=== PATIENT | female | born 1935 | race Caucasian/White ===

== ENCOUNTER 2019-02-18 09:45 | Emergency (ER) | payer MEDICARE, BC ==
[2019-02-18] MEDS ORDERED: LORazepam 2 MG/ML SDV IVPUSH ONE (10:34)
[2019-02-18] MEDS ORDERED: Acetaminophen/HYDROcodone 325-5 MG Tab PO ONE (10:34)
[2019-02-18] MEDS ORDERED: Ondansetron 4 MG/2 ML SDV IVPUSH ONE (10:34)
[2019-02-18] MEDS ORDERED: oxyCODONE 5 MG Tab PO ONE (10:37)
[2019-02-18] MEDS ORDERED: Acetaminophen 500 MG Tab PO ONE (10:37)
--- NOTE | 2019-02-18 10:39 | EDM.PDOC ---
ED HPI GENERAL MEDICAL PROBLEM - General Chief Complaint: Chest Pain Stated Complaint: PAIN Time Seen by Provider: 02/18/19 10:10 Source of Information: Reports: Patient History Limitations: Reports: No Limitations - History of Present Illness INITIAL COMMENTS - FREE TEXT/NARRATIVE: 83-year-old female with history of central left-sided chest pain since 2018. Apparently on 02/09/2019 she was walking to the bathroom at night without the light on and ran into a piece of furniture striking her central and left chest. She did not complain of any pain to her at the time and asked him into bed and did not have the pain until the following day. He has had fairly continual pain in her left chest and trouble chest that is worse with palpation, movement and with deep breaths. She has had no cough or hemoptysis. She was seen on 02/11/2019 at the [facility] and had chest x-ray performed which was read as negative. She was placed on Relafen and methocarbamol for her pain. She reports that the pain has been ongoing and today seemed to be worse with movement and with breathing and then see her for evaluation. She has had no nausea or vomiting. She's had no arm, neck or jaw pain. The pain is rated by her as a 6/10 now but he goes up to a 10/10 at its worse with sharp jabbing pains when she moves certain ways, palpates the area or takes a deep breath. He has no abdominal pain. She has had normal urination. She has had no fevers or chills. There are no other associated signs or symptoms. There are no other modifying factors. It should be noted that most of the history came from the patient's as the patient is a relatively poor historian. Onset: Other (02/10/2019) Duration: Constant, Getting Worse (Subjectively to the patient today) Location: Reports: Chest Quality: Reports: Ache, Pressure, Sharp Severity: Moderate (to severe at times) Improves with: Reports: Rest Worsens with: Reports: Breathing, Other (Patient), Movement Context: Reports: Trauma (As above) Associated Symptoms: Reports: No Other Symptoms (No other symptoms besides chest pain) Treatments [employer]: Reports: Acetaminophen, Other Medication(s) (As above) MID CHEST RADIATING TO THE LEFT LOWER BREAST Pain Score (Numeric/FACES): 10 - Related Data Allergies Allergy/AdvReac Type Severity Reaction Status Date / Time bacitracin Allergy Rash Verified 02/18/19 10:03 [From Neosporin ([id number])] bacitracin zinc Allergy Rash Verified 02/18/19 10:03 [From Neosporin ([id number])] neomycin sulfate Allergy Rash Verified 02/18/19 10:03 [From Neosporin ([id number])] polymyxin B Allergy Rash Verified 02/18/19 10:03 [From Neosporin ([id number])] Home Meds: Home Meds atorvaSTATin [Lipitor] 10 mg PO QPM 04/28/14 [History] cycloSPORINE [Restasis] 1 drop EYEBOTH BID 04/28/14 [History] Calcium Carbonate/Vitamin D3 [Calcium 500 + Vit D 200 Caplet] 1 tab PO BID 05/12 [History] DULoxetine [Cymbalta] 60 mg PO BID 05/12/14 [History] Gabapentin [Neurontin] 900 mg PO TID 05/12/14 [History] Multivitamin with Minerals [Multiple Vitamin] 1 tab PO DAILY 05/12/14 [History] Acetaminophen/HYDROcodone [[place] 325-5 MG] 1 tab PO Q6H PRN #14 tab 02/18/19 [Rx ] Betamethasone/Propylene Glyc [Diprolene 0.05%] 1 applic TP BID 02/18/19 [History ] Cannabidiol (Cbd) Extract [Epidiolex] 2.5 mg PO DAILY 02/18/19 [History] Folic Acid 1 mg PO DAILY 02/18/19 [History] Memantine [Namenda] 10 mg PO ASDIRECTED 02/18/19 [History] Methocarbamol 500 mg PO QID 02/18/19 [History] Methotrexate 2.5 mg PO Q7D 02/18/19 [History] Nabumetone [Relafen] 500 mg PO BID 02/18/19 [History] Propylene Glycol/PEG 400/Pf [Systane 0.3-0.4% Eye Drops] 1 each OP 02/18/19 [ History] methylPREDNISolone [Medrol] 4 mg PO ASDIRECTED #1 dosepk 02/18/19 [Rx] Past Medical History Cardiovascular History: Reports: High Cholesterol Musculoskeletal History: Reports: Arthritis (Patient is on methotrexate), Back Pain, Chronic Other Musculoskeletal History: FOOT PAIN Psychiatric History: Reports: Anxiety, Dementia - Past Surgical History Female Surgical History: Reports: Hysterectomy Musculoskeletal Surgical History: Reports: Shoulder Surgery (Left shoulder surgery) Social & Family History - Tobacco Use Smoking Status *Q: Never Smoker - Caffeine Use Caffeine Use: Reports: Soda - Alcohol Use Alcohol Use History: Yes Alcohol Use Frequency: Rarely - Living Situation & Occupation Living situation: Reports: Occupation: Retired Social History Comment: She is here with her . ED ROS GENERAL - Review of Systems Review Of Systems: See Below Constitutional: Reports: No Symptoms HEENT: Reports: No Symptoms Respiratory: Reports: No Symptoms Cardiovascular: Reports: Chest Pain GI/Abdominal: Reports: No Symptoms : Reports: No Symptoms Musculoskeletal: Reports: No Symptoms Skin: Reports: No Symptoms Neurological: Reports: No Symptoms Psychiatric: Reports: Anxiety Hematologic/Lymphatic: Reports: No Symptoms Immunologic: Reports: No Symptoms ED EXAM, GENERAL - Physical Exam Exam: See Below Exam Limited By: No Limitations General Appearance: Alert, WD/WN, Moderate Distress (Intermittently with sharp pains chest) Eye Exam: Bilateral Eye: EOMI, Normal Inspection, PERRL Ears: Normal External Exam Ear Exam: Bilateral Ear: Auricle Normal Nose: Normal Inspection, Normal Mucosa, No Blood Throat/Mouth: Normal Inspection, Normal Oropharynx, Normal Voice, No Airway Compromise Head: Atraumatic, Normocephalic Neck: Normal Inspection, Supple, Non-Tender, Full Range of Motion Respiratory/Chest: No Respiratory Distress, Lungs Clear, Normal Breath Sounds, No Accessory Muscle Use, Other (Tender to palpation over central and left chest. No crepitus. No subcutaneous emphysema.) Cardiovascular: Normal Peripheral Pulses, Regular Rate, Rhythm, No Edema, No JVD Peripheral Pulses: 2+: Radial (L), Radial (R), Dorsalis Pedis (L), Dorsalis Pedis (R) GI/Abdominal: Normal Bowel Sounds, Soft, Non-Tender, No Distention, No Mass Back Exam: Normal Inspection Extremities: Normal Inspection, Normal Range of Motion, Non-Tender, No Pedal Edema, Normal Capillary Refill Neurological: Alert, Oriented, CN II-XII Intact, No Motor/Sensory Deficits, Other (Poor historian) Psychiatric: Anxious Skin Exam: Warm, Dry, Intact, Normal Color, No Rash EKG INTERPRETATION EKG Date: 02/18/19 Time: 09:47 Rhythm: NSR Rate (Beats/Min): 68 [place]: Normal P-Wave: Present QRS: Normal ST-T: Normal QT: Normal Comparison: NA - No Prior EKG EKG Interpretation Comments: Normal sinus rhythm with a rate of 68. There is a normal axis. There are normal intervals including a normal QTc. It is a normal EKG. Course - Vital Signs Last Recorded V/S: Last Vital Signs Temp 36.6 C 02/18/19 09:45 Pulse 66 02/18/19 09:45 Resp 23 H 02/18/19 09:45 BP 156/86 H 02/18/19 09:45 Pulse Ox 100 02/18/19 09:45 - Orders/Labs/Meds Orders: Active Orders 24 hr Category Date Time Status Ang Chest [CT] Stat Exams 02/18/19 11:43 Taken Chest 2V [CR] Stat Exams 02/18/19 10:31 Taken Sodium Chloride 0.9% [Saline Flush] Med 02/18/19 10:31 Active 10 ml FLUSH ASDIRECTED PRN Peripheral IV Insertion Adult [OM.PC] Routine Oth 02/18/19 10:31 Ordered EKG 12 Lead [EK] Routine Ther 02/18/19 10:31 Ordered Medication Orders Sodium Chloride (Saline Flush) 10 ml FLUSH ASDIRECTED PRN PRN Reason: Keep Vein Open Last Admin: 02/18/19 11:05 Dose: 10 ml Admin: 02/18/19 10:59 Dose: 10 ml Labs: Laboratory Tests 02/18/19 02/18/19 02/18/19 Range/Units 10:50 10:50 10:50 WBC 6.7 (4.5-12.0) X10-3/uL RBC 3.90 (3.23-5.20) x10(6)uL Hgb 13.5 (11.5-15.5) g/dL Hct 39.2 (30.0-51.3) % MCV 100.3 H (80-96) fL MCH 34.5 H (27.7-33.6) pg MCHC 34.4 (32.2-35.4) g/dL RDW 15.1 (11.5-15.5) % Plt Count 241 (125-369) X10(3)uL MPV 8.6 (7.4-10.4) fL Neut % (Auto) 73.3 (46-82) % Lymph % (Auto) 17.1 (13-37) % Todd % (Auto) 6.7 (4-12) % Eos % (Auto) 2 (1.0-5.0) % Baso % (Auto) 1 (0-2) % Neut # (Auto) 5.0 (1.6-8.3) # Lymph # (Auto) 1.1 (0.6-5.0) # Todd # (Auto) 0.4 (0.0-1.3) # Eos # (Auto) 0.1 (0.0-0.8) # Baso # (Auto) 0.1 (0.0-0.2) # ESR 9 (0-20) mm/hr D-Dimer, Quantitative (0.0-0.59) mg/LFEU Sodium 143 (135-145) mmol/L Potassium 3.6 (3.5-5.3) mmol/L Chloride 104 (100-110) mmol/L Carbon Dioxide 27 (21-32) mmol/L BUN 15 (7-18) mg/dL Creatinine 0.7 (0.55-1.02) mg/dL Est Cr Clr Drug Dosing 52.14 mL/min Estimated GFR (MDRD) > 60 (>60) BUN/Creatinine Ratio 21.4 H (9-20) Glucose 107 (80-116) mg/dL Calcium 9.2 (8.6-10.2) mg/dL Total Bilirubin 0.7 (0.1-1.3) mg/dL AST 20 (5-25) IU/L ALT 25 (12-36) U/L Alkaline Phosphatase 94 (56-112) IU/L Troponin I < 0.017 L (<0.017-0.056) ng/mL C-Reactive Protein < 0.2 L (0.5-0.9) mg/dL Total Protein 6.9 (6.0-8.0) g/dL Albumin 3.9 (3.2-4.6) g/dL Globulin 3.0 g/dL Albumin/Globulin Ratio 1.3 07/01/19 Range/Units 10:50 WBC (4.5-12.0) X10-3/uL RBC (3.23-5.20) x10(6)uL Hgb (11.5-15.5) g/dL Hct (30.0-51.3) % MCV (80-96) fL MCH (27.7-33.6) pg MCHC (32.2-35.4) g/dL RDW (11.5-15.5) % Plt Count (125-369) X10(3)uL MPV (7.4-10.4) fL Neut % (Auto) (46-82) % Lymph % (Auto) (13-37) % Todd % (Auto) (4-12) % Eos % (Auto) (1.0-5.0) % Baso % (Auto) (0-2) % Neut # (Auto) (1.6-8.3) # Lymph # (Auto) (0.6-5.0) # Todd # (Auto) (0.0-1.3) # Eos # (Auto) (0.0-0.8) # Baso # (Auto) (0.0-0.2) # ESR (0-20) mm/hr D-Dimer, Quantitative 0.86 H (0.0-0.59) mg/LFEU Sodium (135-145) mmol/L Potassium (3.5-5.3) mmol/L Chloride (100-110) mmol/L Carbon Dioxide (21-32) mmol/L BUN (7-18) mg/dL Creatinine (0.55-1.02) mg/dL Est Cr Clr Drug Dosing mL/min Estimated GFR (MDRD) (>60) BUN/Creatinine Ratio (9-20) Glucose (80-116) mg/dL Calcium (8.6-10.2) mg/dL Total Bilirubin (0.1-1.3) mg/dL AST (5-25) IU/L ALT (12-36) U/L Alkaline Phosphatase (56-112) IU/L Troponin I (<0.017-0.056) ng/mL C-Reactive Protein (0.5-0.9) mg/dL Total Protein (6.0-8.0) g/dL Albumin (3.2-4.6) g/dL Globulin g/dL Albumin/Globulin Ratio Meds: Medications Generic Name Dose Route Start Last Admin Trade Name Freq PRN Reason Stop Dose Admin Sodium Chloride 10 ml 02/18/19 10:31 02/18/19 11:05 Saline Flush FLUSH 10 ml ASDIRECTED PRN Administration Keep Vein Open Discontinued Medications Generic Name Dose Route Start Last Admin Trade Name Freq PRN Reason Stop Dose Admin Acetaminophen 1,000 mg 02/18/19 10:37 02/18/19 10:49 Tylenol Extra Strength PO 02/18/19 10:38 1,000 mg ONETIME ONE Administration Hydrocodone Bitart/Acetaminophen 1 tab 02/18/19 10:34 02/18/19 11:05 [place] 325-5 Mg PO 02/18/19 10:35 Not Given ONETIME ONE Sodium Chloride 500 mls @ 999 mls/hr 02/18/19 11:42 02/18/19 11:54 Normal Saline IV 02/18/19 12:12 999 mls/hr .BOLUS ONE Administration Iopamidol 75 ml 02/18/19 12:00 02/18/19 12:26 Isovue-370 (76%) IV 02/18/19 12:01 75 ml ONETIME ONE Administration Lorazepam 0.5 mg 02/18/19 10:34 02/18/19 11:01 Ativan IVPUSH 02/18/19 10:35 0.5 mg ONETIME ONE Administration Ondansetron HCl 4 mg 02/18/19 10:34 02/18/19 10:59 Zofran IVPUSH 02/18/19 10:35 4 mg ONETIME ONE Administration Oxycodone HCl 5 mg 02/18/19 10:37 02/18/19 11:22 Oxycodone PO 02/18/19 10:38 5 mg ONETIME ONE Administration - Radiology Interpretation Free Text/Narrative:: Chest x-ray PA and lateral showed no acute disease. CTA of chest showed no evidence of pulmonary embolism, aortic dissection or pneumonia. There were gallstones present. There is a 1.8 cm low attenuation lesion in the left lobe of the liver in which nonemergent ultrasound examination is recommended by the radiologist. - Re-Assessments/Exams Free Text/Narrative Re-Assessment/Exam: 02/18/19 11:35: Patient's pain is much improved. She remains vitally stable. Her chest x-ray appears normal. Her blood tests are reassuringly normal or unchanged except she does have an elevated d-dimer. I will send her for CTA of her chest to rule out PE or dissection. 02/18/19 14:04: CTA of the chest was negative for pulmonary embolism, dissection or pneumonia. Her pain appears to be chest wall pain/ costochondritis. I will give the patient hydrocodone to use for more severe pain and she should follow-up with her primary doctor. Departure - Departure Time of Disposition: 14:20 Disposition: Home, Self-Care 01 Condition: Good (Improved) Clinical Impression: Chest wall pain, Costochondritis - Discharge Information Prescriptions: Acetaminophen/HYDROcodone [[place] 325-5 MG] 1 tab PO Q6H PRN #14 tab PRN Reason: Moderate to severe pain methylPREDNISolone [Medrol] 4 mg PO ASDIRECTED #1 dosepk Instructions: Costochondritis, [id number], Chest Wall Pain, [id number] Referrals: Guzman Sanford PA [Primary Care Provider] - Forms: ED Department Discharge Additional Instructions: Your blood tests were reassuringly normal except for elevated blood clots screening test. Your chest x-ray looked normal. The CT scan of your chest showed no evidence of blood clots in your lungs, damage to your arteries or pneumonias. There was a small spot on the left lobe of your liver that you will need to follow-up with your primary doctor to have this more further evaluated. The pain in your chest appears to be coming from your chest wall and this is related to inflammation of the junction between your ribs and your breastbone. You should continue to take the Relafen. Medication as prescribed (hydrocodone 5 /325, Medrol Dosepak). I did place you on an anti-inflammatory medicine (Medrol ) to try to decrease the inflammation and help with your pain. You should have activity as tolerated. Increase your fluid intake. Follow-up with your primary doctor this week or next for persisting problems. Active the emergency department for vomiting, coughing of blood, fever, trouble breathing or any other concerning sign or symptom. - My Orders Last 24 Hours: My Active Orders 02/18/19 10:31 Chest 2V [CR] Stat Sodium Chloride 0.9% [Saline Flush] 10 ml FLUSH ASDIRECTED PRN Peripheral IV Insertion Adult [OM.PC] Routine EKG 12 Lead [EK] Routine 02/18/19 11:43 Ang Chest [CT] Stat - Assessment/Plan Last 24 Hours: My Active Orders 02/18/19 10:31 Chest 2V [CR] Stat Sodium Chloride 0.9% [Saline Flush] 10 ml FLUSH ASDIRECTED PRN Peripheral IV Insertion Adult [OM.PC] Routine EKG 12 Lead [EK] Routine 02/18/19 11:43 Ang Chest [CT] Stat
[2019-02-18] MEDS: Sodium Chloride 0.9% 10 ML Syringe FLUSH PRN ×2 (10:59→11:05)
[2019-02-18] MEDS ORDERED: Sodium Chloride 0.9% 500 ML IV ONE (11:42)
[2019-02-18] MEDS ORDERED: Iopamidol 755 Mg/ML 75 ML Bottle IV ONE (12:00)
== END 2019-02-18 14:40 | disposition home or self-care (01) ==
LOC: FB.ED 09:45
DX: M94.0 Chondrocostal junction syndrome [Tietze] (principal); E78.00 Pure hypercholesterolemia, unspecified; Z79.899 Other long term (current) drug therapy; Z88.1 Allergy status to other antibiotic agents; Z88.8 Allergy status to other drugs, medicaments and biological substances
CPT/HCPCS: 36415; 71046; 71275; 80053; 84484; 85025; 85379; 85651; 86140; 93005; 96361; 96374; 96375; 99284; A9270; J2060; J2405; J7040; Q9967

== ENCOUNTER 2019-02-22 10:03 | Emergency (ER) | payer MEDICARE, BC ==
[2019-02-22] MEDS ORDERED: Morphine 4 MG/ML Syringe IVPUSH ONE (11:10)
[2019-02-22] MEDS ORDERED: Ondansetron 4 MG/2 ML SDV IVPUSH ONE (11:10)
[2019-02-22] MEDS ORDERED: Sodium Chloride 0.9% 500 ML IV ONE (11:10)
--- NOTE | 2019-02-22 11:10 | EDM.PDOC ---
ED HPI GENERAL MEDICAL PROBLEM - General Chief Complaint: Lower Extremity Injury/Pain Stated Complaint: RT LEG PAIN Time Seen by Provider: 02/22/19 11:00 Source of Information: Reports: Patient, Family () History Limitations: Reports: No Limitations - History of Present Illness INITIAL COMMENTS - FREE TEXT/NARRATIVE: 83-year-old female who reports she was going to the bathroom this morning an approximate 7:30 AM and she slipped and fell landing on her right hip area. There was no loss of consciousness. She had no weakness or dizziness or passout spell. She did have immediate pain in her right hip and she reports that she and her were able to get her back up and back into the bed but with extreme difficulty. She has had fairly severe pain with spasms in her right hip since that time. The pain seems to go down her leg toward her knee. The pain is worse with any Movement of her leg. She has no neck pain or back pain. She has had some nausea associated with the pain but no vomiting. She has no abdominal pain. She rates her pain as a 10/10. It is sharp and spasm-like. There are no other associated signs or symptoms. There are no other modifying factors. 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: Other (see below) (Nothing) Right Hip Pain Score (Numeric/FACES): 10 - Related Data Allergies Allergy/AdvReac Type Severity Reaction Status Date / Time bacitracin Allergy Rash Verified 02/22/19 11:10 [From Neosporin ([id number])] bacitracin zinc Allergy Rash Verified 02/22/19 11:10 [From Neosporin ([id number])] morphine Allergy Vomiting Verified 02/22/19 11:19 neomycin sulfate Allergy Rash Verified 02/22/19 11:10 [From Neosporin ([id number])] polymyxin B Allergy Rash Verified 02/22/19 11:10 [From Neosporin ([id number])] Home Meds: Home Meds atorvaSTATin [Lipitor] 10 mg PO QPM 04/28/14 [History] cycloSPORINE [Restasis] 1 drop EYEBOTH BID 04/28/14 [History] Calcium Carbonate/Vitamin D3 [Calcium 500 + Vit D 200 Caplet] 1 tab PO BID 05/12 [History] DULoxetine [Cymbalta] 60 mg PO BID 05/12/14 [History] Gabapentin [Neurontin] 900 mg PO TID 05/12/14 [History] Multivitamin with Minerals [Multiple Vitamin] 1 tab PO DAILY 05/12/14 [History] Acetaminophen/HYDROcodone [[place] 325-5 MG] 1 tab PO Q6H PRN #14 tab 02/18/19 [Rx ] Betamethasone/Propylene Glyc [Diprolene 0.05%] 1 applic TP BID 02/18/19 [History ] Cannabidiol (Cbd) Extract [Epidiolex] 2.5 mg PO DAILY 02/18/19 [History] Folic Acid 1 mg PO DAILY 02/18/19 [History] Memantine [Namenda] 10 mg PO ASDIRECTED 02/18/19 [History] Methocarbamol 500 mg PO QID 02/18/19 [History] Methotrexate 2.5 mg PO Q7D 02/18/19 [History] Nabumetone [Relafen] 500 mg PO BID 02/18/19 [History] Propylene Glycol/PEG 400/Pf [Systane 0.3-0.4% Eye Drops] 1 each OP 02/18/19 [ History] methylPREDNISolone [Medrol] 4 mg PO ASDIRECTED #1 dosepk 02/18/19 [Rx] Past Medical History Cardiovascular History: Reports: High Cholesterol Musculoskeletal History: Reports: Arthritis (Patient is on methotrexate), Back Pain, Chronic Other Musculoskeletal History: FOOT PAIN 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, Anxiety, Dementia - Past Surgical History Female Surgical History: Reports: Hysterectomy Musculoskeletal Surgical History: Reports: Shoulder Surgery (Left shoulder surgery) Social & Family History - Tobacco Use Smoking Status *Q: Never Smoker - Caffeine Use Caffeine Use: Reports: Coffee - Alcohol Use Alcohol Use History: No - Recreational Drug Use Recreational Drug Use: No - Living Situation & Occupation Living situation: Reports: Occupation: Retired Review of Systems - Review of Systems Review Of Systems: See Below Constitutional: Reports: No Symptoms Eyes: Reports: No Symptoms Ears: Reports: No Symptoms Nose: Reports: No Symptoms Mouth/Throat: Reports: No Symptoms Respiratory: Reports: No Symptoms Cardiovascular: Reports: No Symptoms GI/Abdominal: Reports: Nausea Genitourinary: Reports: No Symptoms Musculoskeletal: Reports: Joint Pain (Right hip pain) Skin: Reports: No Symptoms (No open wounds) Neurological: Reports: No Symptoms Psychiatric: Reports: Anxiety ED EXAM, GENERAL - Physical Exam Exam: See Below Exam Limited By: No Limitations General Appearance: Alert, Moderate Distress (to severe) Eye Exam: Bilateral Eye: EOMI, Normal Inspection, PERRL Ears: Normal External Exam Ear Exam: Bilateral Ear: Auricle Normal Nose: Normal Inspection, Normal Mucosa, No Blood Throat/Mouth: Normal Voice, No Airway Compromise, Other (Dry membranes) Head: Atraumatic, Normocephalic Neck: Normal Inspection, Supple, Non-Tender, Full Range of Motion Respiratory/Chest: No Respiratory Distress, Lungs Clear, Normal Breath Sounds, No Accessory Muscle Use, Other (Tender in her central and left chest as was on ) Cardiovascular: Normal Peripheral Pulses, Regular Rate, Rhythm, No JVD Peripheral Pulses: 2+: Radial (L), Radial (R), Dorsalis Pedis (L), Dorsalis Pedis (R) GI/Abdominal: Normal Bowel Sounds, Soft, Non-Tender, No Distention Back Exam: Normal Inspection Extremities: No Pedal Edema, Normal Capillary Refill, Other (Exquisite pain with palpation over her right hip. No crepitus.) Neurological: Alert, CN II-XII Intact, No Motor/Sensory Deficits, Other (Slight disorientation secondary to being consumed with pain) Psychiatric: Anxious Skin Exam: Warm, Dry, Intact, Normal Color, No Rash EKG INTERPRETATION EKG Date: 02/22/19 Time: 14:30 Rhythm: NSR Rate (Beats/Min): 91 [place]: Normal QRS: Normal ST-T: Other (Lateral T-wave flattening that was not present on EKG on 02/18/2019.) QT: Prolonged (Which is also new from EKG performed on 02/18/2019.) Comparison: Change From Previous EKG (Changes as above from EKG performed on 02/18.) Course - Vital Signs Last Recorded V/S: Last Vital Signs Temp Pulse 86 02/22/19 14:24 Resp 18 07/05/19 14:24 BP 159/85 H 02/22/19 14:24 Pulse Ox 97 02/22/19 14:24 - Orders/Labs/Meds Orders: Active Orders 24 hr Category Date Time Status EKG Documentation Completion [RC] ASDIRECTED Care 02/22/19 11:12 Active Insert Urinary Catheter [OM.PC] Q24H Care 02/22/19 11:15 Ordered Urinary Catheter Assessment [RC] QSHIFT Care 02/22/19 11:12 Active Cervical Spine wo Cont [CT] Stat Exams 02/22/19 14:27 Taken Head wo Cont [CT] Stat Exams 02/22/19 14:25 Taken Hip Min 2V or 3V w Pelvis Rt [CR] Stat Exams 02/22/19 11:14 Taken CULTURE URINE [RM] Stat Lab 02/22/19 14:55 Received Sodium Chloride 0.9% [Normal Saline] 1,000 ml Med 02/22/19 11:15 Active IV ASDIRECTED EKG 12 Lead [EK] Routine Ther 02/22/19 11:11 Ordered Medication Orders Sodium Chloride (Normal Saline) 1,000 mls @ 125 mls/hr IV ASDIRECTED GAVIN Last Admin: 02/22/19 12:15 Dose: 125 mls/hr Labs: Laboratory Tests 02/22/19 02/22/19 02/22/19 Range/Units 11:28 11:28 11:28 WBC 19.3 H (4.5-12.0) X10-3/uL RBC 4.10 (3.23-5.20) x10(6)uL Hgb 14.2 (11.5-15.5) g/dL Hct 41.4 (30.0-51.3) % MCV 100.8 H (80-96) fL MCH 34.5 H (27.7-33.6) pg MCHC 34.2 (32.2-35.4) g/dL RDW 15.7 H (11.5-15.5) % Plt Count 294 (125-369) X10(3)uL MPV 8.4 (7.4-10.4) fL Add Manual Diff Yes Neutrophils % (Manual) 81 (46-82) % Band Neutrophils % 5 (0-6) % Lymphocytes % (Manual) 9 L (13-37) % Monocytes % (Manual) 5 (4-12) % Sodium 147 H (135-145) mmol/L Potassium 3.2 L (3.5-5.3) mmol/L Chloride 106 (100-110) mmol/L Carbon Dioxide 26 (21-32) mmol/L BUN 16 (7-18) mg/dL Creatinine 0.6 (0.55-1.02) mg/dL Est Cr Clr Drug Dosing TNP Estimated GFR (MDRD) > 60 (>60) BUN/Creatinine Ratio 26.7 H (9-20) Glucose 86 (80-116) mg/dL Calcium 9.0 (8.6-10.2) mg/dL Total Bilirubin 0.6 (0.1-1.3) mg/dL AST 22 (5-25) IU/L ALT 32 D (12-36) U/L Alkaline Phosphatase 123 H (56-112) IU/L Troponin I < 0.017 L (<0.017-0.056) ng/mL Total Protein 7.4 (6.0-8.0) g/dL Albumin 4.3 (3.2-4.6) g/dL Globulin 3.1 g/dL Albumin/Globulin Ratio 1.4 Urine Color (YELLOW) Urine Appearance (CLEAR) Urine pH (5.0-6.5) Ur Specific [place] (1.010-1.025) Urine Protein (NEGATIVE) mg/dL Urine Glucose (UA) (NORMAL) mg/dL Urine Ketones (NEGATIVE) mg/dL Urine Occult Blood (NEGATIVE) Urine Nitrite (NEGATIVE) Urine Bilirubin (NEGATIVE) Urine Urobilinogen (NEGATIVE) mg/dL Ur Leukocyte Esterase (NEGATIVE) Urine RBC (0-5) Urine WBC (0-5) Ur Squamous Epith Cells (NS,R,O) Urine Bacteria (NS) 02/22/19 Range/Units 14:53 WBC (4.5-12.0) X10-3/uL RBC (3.23-5.20) x10(6)uL Hgb (11.5-15.5) g/dL Hct (30.0-51.3) % MCV (80-96) fL MCH (27.7-33.6) pg MCHC (32.2-35.4) g/dL RDW (11.5-15.5) % Plt Count (125-369) X10(3)uL MPV (7.4-10.4) fL Add Manual Diff Neutrophils % (Manual) (46-82) % Band Neutrophils % (0-6) % Lymphocytes % (Manual) (13-37) % Monocytes % (Manual) (4-12) % Sodium (135-145) mmol/L Potassium (3.5-5.3) mmol/L Chloride (100-110) mmol/L Carbon Dioxide (21-32) mmol/L BUN (7-18) mg/dL Creatinine (0.55-1.02) mg/dL Est Cr Clr Drug Dosing Estimated GFR (MDRD) (>60) BUN/Creatinine Ratio (9-20) Glucose (80-116) mg/dL Calcium (8.6-10.2) mg/dL Total Bilirubin (0.1-1.3) mg/dL AST (5-25) IU/L ALT (12-36) U/L Alkaline Phosphatase (56-112) IU/L Troponin I (<0.017-0.056) ng/mL Total Protein (6.0-8.0) g/dL Albumin (3.2-4.6) g/dL Globulin g/dL Albumin/Globulin Ratio Urine Color Yellow (YELLOW) Urine Appearance Slightly cloudy (CLEAR) Urine pH 8.0 H (5.0-6.5) Ur Specific [place] 1.010 (1.010-1.025) Urine Protein Negative (NEGATIVE) mg/dL Urine Glucose (UA) Normal (NORMAL) mg/dL Urine Ketones Negative (NEGATIVE) mg/dL Urine Occult Blood Moderate H (NEGATIVE) Urine Nitrite Positive H (NEGATIVE) Urine Bilirubin Negative (NEGATIVE) Urine Urobilinogen Normal (NEGATIVE) mg/dL Ur Leukocyte Esterase Negative (NEGATIVE) Urine RBC 5-10 H (0-5) Urine WBC 5-10 H (0-5) Ur Squamous Epith Cells Rare (NS,R,O) Urine Bacteria Many H (NS) Meds: Medications Generic Name Dose Route Start Last Admin Trade Name Freq PRN Reason Stop Dose Admin Sodium Chloride 1,000 mls @ 125 mls/hr 02/22/19 11:15 02/22/19 12:15 Normal Saline IV 125 mls/hr ASDIRECTED GAVIN Administration Discontinued Medications Generic Name Dose Route Start Last Admin Trade Name Beni PRN Reason Stop Dose Admin Hydromorphone HCl 0.5 mg 02/22/19 11:41 02/22/19 11:47 Dilaudid IVPUSH 02/22/19 11:42 0.5 mg ONETIME ONE Administration Hydromorphone HCl 0.5 mg 02/22/19 12:32 02/22/19 12:52 Dilaudid IVPUSH 02/22/19 12:33 0.5 mg ONETIME ONE Administration Sodium Chloride 500 mls @ 999 mls/hr 02/22/19 11:10 02/22/19 11:15 Normal Saline IV 02/22/19 11:40 999 mls/hr .BOLUS ONE Administration Morphine Sulfate 4 mg 02/22/19 11:10 02/22/19 13:02 Morphine IVPUSH 02/22/19 11:11 Not Given ONETIME ONE Ondansetron HCl 4 mg 02/22/19 11:10 02/22/19 11:22 Zofran IVPUSH 02/22/19 11:11 4 mg ONETIME ONE Administration - Radiology Interpretation Free Text/Narrative:: X-ray of right hip and pelvis shows a slightly displaced right subcapital hip fracture. - Re-Assessments/Exams Free Text/Narrative Re-Assessment/Exam: 02/22/19 12:30: I discussed patient's case with Dr. Randolph. Dr. Randolph is not cost control supervisor and is not available at this time. Patient has been given Dilaudid for pain with good results. We will continue to monitor closely and address her pain additional doses of Dilaudid as needed. 02/22/19 12:50: I discussed the x-ray findings with the patient and her . The patient will need admission and orthopedic services which are not available at [facility] at this time. The patient is followed through the [facility] by Dr. Alexandre and the would want me to discuss his 's case with the doctors at [facility]. 02/22/19 13:20: I discussed patient's case with Dr. Salazar, emergency department physician at [facility], and he will accept the patient in transfer. I discussed this with the patient's and he is in agreement with the plans for transfer. 02/22/19 14:20: Now, the patient is exhibiting some ecchymosis along her right infraorbital area. She is quite disoriented now after the Dilaudid and I will send her for a CT of her head and cervical spine to rule out any injury to these places after the fall. Report has been given by the nurse to the accepting nurse at [facility] and we will do these CTs prior to the patient's transport. 02/22/19 15:41: CT scan of the patient's head and cervical spine show no acute abnormalities per the radiologist. Departure - Departure Time of Disposition: 14:45 Disposition: DC/Tfer to [facility] 02 Condition: Fair Clinical Impression: Subcapital fracture of right hip Qualifiers: Encounter type: initial encounter Fracture type: closed Qualified Code(s): S72.011A - Unspecified intracapsular fracture of right femur, initial encounter for closed fracture Head contusion Qualifiers: Encounter type: initial encounter Contusion of head detail: other part of head Qualified Code(s): S00.83XA - Contusion of other part of head, initial encounter Fall from standing Qualifiers: Encounter type: initial encounter Qualified Code(s): W19.XXXA - Unspecified fall, initial encounter - Discharge Information Referrals: Guzman Sanford PA [Primary Care Provider] - Forms: ED Department Discharge - My Orders Last 24 Hours: My Active Orders 02/22/19 11:11 EKG 12 Lead [EK] Routine 02/22/19 11:12 EKG Documentation Completion [RC] ASDIRECTED Urinary Catheter Assessment [RC] QSHIFT 02/22/19 11:14 Hip Min 2V or 3V w Pelvis Rt [CR] Stat 02/22/19 11:15 Insert Urinary Catheter [OM.PC] Q24H Sodium Chloride 0.9% [Normal Saline] 1,000 ml IV ASDIRECTED 02/22/19 14:25 Head wo Cont [CT] Stat 02/22/19 14:27 Cervical Spine wo Cont [CT] Stat 02/22/19 14:55 CULTURE URINE [RM] Stat - Assessment/Plan Last 24 Hours: My Active Orders 02/22/19 11:11 EKG 12 Lead [EK] Routine 02/22/19 11:12 EKG Documentation Completion [RC] ASDIRECTED Urinary Catheter Assessment [RC] QSHIFT 02/22/19 11:14 Hip Min 2V or 3V w Pelvis Rt [CR] Stat 02/22/19 11:15 Insert Urinary Catheter [OM.PC] Q24H Sodium Chloride 0.9% [Normal Saline] 1,000 ml IV ASDIRECTED 02/22/19 14:25 Head wo Cont [CT] Stat 02/22/19 14:27 Cervical Spine wo Cont [CT] Stat 02/22/19 14:55 CULTURE URINE [RM] Stat
[2019-02-22] MEDS: Sodium Chloride 0.9% 1,000 ML IV SCH ×2 (11:15→12:15)
[2019-02-22] MEDS ORDERED: HYDROmorphone 2 MG/ML SDV IVPUSH ONE ×2 (11:41→12:32)
== END 2019-02-22 15:52 ==
LOC: FB.ED 10:03
DX: S72.011A Unspecified intracapsular fracture of right femur, initial encounter for closed fracture (principal); S00.83XA Contusion of other part of head, initial encounter; Z88.1 Allergy status to other antibiotic agents; Z88.5 Allergy status to narcotic agent; Z79.899 Other long term (current) drug therapy; F03.90 Unspecified dementia, unspecified severity, without behavioral disturbance, psychotic disturbance, mood disturbance, and anxiety; F41.9 Anxiety disorder, unspecified; Z90.710 Acquired absence of both cervix and uterus; W01.0XXA Fall on same level from slipping, tripping and stumbling without subsequent striking against object, initial encounter
CPT/HCPCS: 36415; 51702; 70450; 72125; 73502; 80053; 81001; 84484; 85025; 87086; 87088; 87186; 93005; 93010; 96361; 96374; 96375; 96376; 99284; 99285; J1170; J2405; J7030; J7040

== ENCOUNTER 2019-02-27 11:30 | Inpatient (IN) | payer MEDICARE, BC ==
[2019-02-27] MEDS ORDERED: Non-Formulary Medication 1 Each (Epinephrine [Epipen] 0.3 MG) IM PRN (14:37)
[2019-02-27] MEDS ORDERED: Betamethasone Dipropionate 0.05% Crm 15 GM Tube TOP PRN ×2 (15:45)
[2019-02-27] MEDS: Gabapentin 300 MG Cap PO SCH ×2 (15:51→20:29)
--- NOTE | 2019-02-27 18:07 | PCM.HP ---
H&P History of Present Illness - General Date of Service: 02/27/19 Admit Problem/Dx: Admission Diagnosis/Problem Admission Diagnosis/Problem Postoperative care Source of Information: Patient, EMS History Limitations: Reports: No Limitations - History of Present Illness Initial Comments - Free Text/Narative: This is a 83-year-old female patient that slipped and fell the bathroom and broke her right hip. She went to [facility] in [place] and had a hip pinning. She was transferred here for rehabilitation. She says she needs something for sleep other that she is doing well. Pain is controlled. She denies shortness of breath , chest pain, leg swelling, fevers or chills. - Related Data Allergies/Adverse Reactions: Allergies Allergy/AdvReac Type Severity Reaction Status Date / Time bacitracin Allergy Rash Verified 02/22/19 11:10 [From Neosporin ([id number])] bacitracin zinc Allergy Rash Verified 02/22/19 11:10 [From Neosporin ([id number])] morphine Allergy Vomiting Verified 02/22/19 11:19 neomycin sulfate Allergy Rash Verified 02/22/19 11:10 [From Neosporin ([id number])] polymyxin B Allergy Rash Verified 02/22/19 11:10 [From Neosporin ([id number])] Home Medications: Home Meds atorvaSTATin [Lipitor] 10 mg PO DAILY 04/28/14 [History] cycloSPORINE [Restasis] 1 drop EYEBOTH BID 04/28/14 [History] Calcium Carbonate/Vitamin D3 [Calcium 500 + Vit D 200 Caplet] 1 tab PO BID 05/12 [History] DULoxetine [Cymbalta] 60 mg PO BID 05/12/14 [History] Folic Acid 1 mg PO DAILY 02/18/19 [History] Memantine [Namenda] 10 mg PO BID 02/18/19 [History] Methotrexate 15 mg PO TH@0800 02/18/19 [History] Propylene Glycol/PEG 400/Pf [Systane 0.3-0.4% Eye Drops] 1 each EYEBOTH BID 09/08 [History] Apixaban [Eliquis] 2.5 mg PO BID 02/27/19 [History] Betamethasone/Propylene Glyc [Betamethasone Dp Aug 0.05% Oin] 1 applic TOP ASDIRECTED PRN 02/27/19 [History] Cholecalciferol (Vitamin D3) [Vitamin D3] 1,000 unit PO DAILY 02/27/19 [History] EPINEPHrine [Epipen] 0.3 mg IM ASDIRECTED PRN 02/27/19 [History] Gabapentin [Neurontin] 900 mg PO TID 02/27/19 [History] Lutein 10 mg PO DAILY 02/27/19 [History] Multivitamin [Daily Lamont] 1 tab PO DAILY 02/27/19 [History] Naltrexone Oral Solution 4.5 ml PO DAILY 02/27/19 [History] traMADol [Ultram] 50 mg PO Q6H PRN 02/27/19 [History] Past Medical History HEENT History: Reports: Cataract Cardiovascular History: Reports: High Cholesterol 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: Musculoskeletal History: Reports: Arthritis, Back Pain, Chronic Other Musculoskeletal History: FOOT PAIN 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 - Alcohol Use Number of Drinks Per Day: 2 Date of Last Drink: 02/13/19 - Recreational Drug Use Recreational Drug Use: No - Living Situation & Occupation Living situation: Reports: Occupation: Retired H&P Review of Systems - Review of Systems: Review Of Systems: See Below General: Reports: No Symptoms HEENT: Reports: No Symptoms Pulmonary: Reports: No Symptoms Cardiovascular: Reports: No Symptoms Gastrointestinal: Reports: No Symptoms, Mucous in Stool Musculoskeletal: Reports: Joint Pain Skin: Reports: No Symptoms Psychiatric: Reports: No Symptoms Neurological: Reports: No Symptoms Hematologic/Lymphatic: Reports: No Symptoms Immunologic: Reports: No Symptoms Exam - Exam Exam: See Below - Vital Signs Vital Signs: Last Vital Signs Temp Pulse Resp BP Pulse Ox 94 L 02/27/19 15:59 Weight: 154 lb 4 oz - Exam General: Alert, Oriented, Cooperative HEENT: Hearing Intact, Mucosa Moist & [place], TMs Clear Neck: Supple, Trachea Midline Lungs: Clear to Auscultation, Normal Respiratory Effort. No: Crackles, Rales, Rhonchi Cardiovascular: Regular Rate, Regular Rhythm, Systolic Murmur GI/Abdominal Exam: Normal Bowel Sounds, Soft, Non-Tender, No Organomegaly, No Distention, No Abnormal Bruit Extremities: Normal Inspection, No Pedal Edema Skin: Warm, Intact Neurological: Normal Speech, Normal Tone Neuro Extensive - Mental Status: Alert, Oriented x3, Normal Mood/Affect, Normal Cognition Psychiatric: Alert, Normal Affect, Normal Mood - Problem List (1) Systolic murmur SNOMED Code(s): 44723069 ICD Code: R01.1 - CARDIAC MURMUR, UNSPECIFIED Status: Acute Current Visit : Yes (2) Subcapital fracture of right hip SNOMED Code(s): 146741660 ICD Code: S72.011A - UNSP INTRACAPSULAR FRACTURE OF RIGHT FEMUR, INIT FOR CLOS FX Status: Acute Current Visit: No Problem List Initiated/Reviewed/Updated: Yes Orders Last 24hrs: Active Orders 24 hr Category Date Time Status Patient Status [ADT] Routine ADT 02/27/19 14:36 Active Height and Weight [RC] WEEKLY Care 02/27/19 14:36 Active Oxygen Therapy [RC] PRN Care 02/27/19 14:36 Active Up With Assistance [RC] ASDIRECTED Care 02/27/19 14:35 Active VTE/DVT Education [RC] Per Unit Routine Care 02/27/19 14:36 Active Vital Signs [RC] PER UNIT ROUTINE Care 02/27/19 14:36 Active OT Evaluation and Treatment [CONS] Routine Cons 02/27/19 14:35 Active PT Evaluation and Treatment [CONS] Routine Cons 02/27/19 14:35 Active Regular Diet [DIET] Diet 02/27/19 Dinner Active Apixaban [Eliquis] Med 02/27/19 21:00 Active 2.5 mg PO BID Betamethasone Dipropionate [Diprolene AF 0.05% Crm] Med 02/27/19 15:45 Active 0 gm TOP ASDIRECTED PRN Calcium Carbonate [Oyster Shell Calcium] Med 02/27/19 21:00 Active 500 mg PO BID Cholecalciferol (Vitamin D3) [Vitamin D3] Med 02/28/19 09:00 Active 25 mcg PO DAILY DULoxetine [Cymbalta] Med 02/27/19 21:00 Active 60 mg PO BID EPINEPHrine [Epipen] Med 02/27/19 14:37 Hold 0.3 mg IM ASDIRECTED PRN Folic Acid Med 02/28/19 09:00 Active 1 mg PO DAILY Gabapentin [Neurontin] Med 02/27/19 15:00 Active 900 mg PO TID Lutein Med 02/28/19 09:00 Active 10 mg PO DAILY Memantine [Namenda] Med 02/27/19 21:00 Active 10 mg PO BID Methotrexate Med 02/28/19 08:00 Active 15 mg PO TH@0800 Multivitamins [Tab-A-Lamont] Med 02/28/19 09:00 Active 1 tab PO DAILY Naltrexone Oral Solution Med 02/28/19 09:00 Pending 4.5 ml PO DAILY PEG 400/Propylene Glycol [Systane Lubricant] Med 02/27/19 21:00 Active 0 ml EYEBOTH BID atorvaSTATin [Lipitor] Med 02/28/19 09:00 Active 10 mg PO DAILY cycloSPORINE [Restasis] Med 02/27/19 21:00 Active 0 each EYEBOTH BID traMADol [Ultram] Med 02/27/19 14:37 Active 50 mg PO Q6H PRN Resuscitation Status Routine Resus Stat 02/27/19 14:35 Ordered Medication Orders Apixaban (Eliquis) 2.5 mg PO BID [facility] Atorvastatin Calcium (Lipitor) 10 mg PO DAILY [facility] Betamethasone Dipropionate (Diprolene Af 0.05% Crm) 0 gm TOP ASDIRECTED PRN PRN Reason: EZCEMA Calcium Carbonate/Glycine ([place]yster Shell Calcium) 500 mg PO BID [facility] Cholecalciferol (Vitamin D3) 25 mcg PO DAILY [facility] Cyclosporine (Restasis) 0 each EYEBOTH BID [facility] Duloxetine HCl (Cymbalta) 60 mg PO BID [facility] Folic Acid (Folic Acid) 1 mg PO DAILY [facility] Gabapentin (Neurontin) 900 mg PO TID [facility] Last Admin: 02/27/19 15:51 Dose: 900 mg Lutein (Lutein) 10 mg PO DAILY [facility] Memantine (Namenda) 10 mg PO BID [facility] Methotrexate (Methotrexate) 15 mg PO TH@0800 [facility] Multivitamins/Minerals/Vitamin C (Tab-A-Lamont) 1 tab PO DAILY GAVIN Non-Formulary Medication (Epinephrine [Epipen]) 0.3 mg IM ASDIRECTED PRN PRN Reason: ALLERGIC REACTION Non-Formulary Medication (Naltrexone Oral Solution) 4.5 ml PO DAILY GAVIN Propylene Glycol (Systane Lubricant) 0 ml EYEBOTH BID GAVIN Tramadol HCl (Ultram) 50 mg PO Q6H PRN PRN Reason: Pain Assessment/Plan Comment:: 1. Admit to swing bed. 2. Continue the same medication she came down from from [facility] 3. Regular diet 4. PT/OT 5. Try some Remeron for insomnia. Her is going to tell us what can a sleeping agent she uses when he comes in. He is a retired pharmacist. 6. Nonweightbearing right hip.
[2019-02-27] MEDS: DULoxetine 60 MG Cap PO SCH (20:27)
[2019-02-27] MEDS: Memantine 10 MG Tab PO SCH (20:28)
[2019-02-27] MEDS: Apixaban 5 MG Tab PO SCH (20:28)
[2019-02-27] MEDS: Calcium Carbonate 500 MG Tablet PO SCH (20:28)
[2019-02-27] MEDS: PEG 400/Propylene Glycol Ophth Soln 15 ML Bottle EYEBOTH SCH (20:31)
[2019-02-27] MEDS: cycloSPORINE Ophth Drops U/D Box of 30 EYEBOTH SCH (20:32)
[2019-02-27] MEDS: traMADol 50 MG Tab PO PRN (20:44)
[2019-02-27] MEDS ORDERED: Mirtazapine 15 MG Tab PO SCH (21:00)
[2019-02-28] MEDS: traMADol 50 MG Tab PO PRN ×2 (07:09→14:38)
[2019-02-28] MEDS ORDERED: NALTREXONE PO SCH (09:00)
[2019-02-28] MEDS: Methotrexate 2.5 MG Tab PO SCH (09:37)
[2019-02-28] MEDS: DULoxetine 60 MG Cap PO SCH ×2 (09:38→21:09)
[2019-02-28] MEDS: Apixaban 5 MG Tab PO SCH ×2 (09:38→21:09)
[2019-02-28] MEDS: atorvaSTATin 10 MG Tab PO SCH (09:38)
[2019-02-28] MEDS: Folic Acid 1 MG Tab PO SCH (09:38)
[2019-02-28] MEDS: Multivitamin Tab PO SCH (09:39)
[2019-02-28] MEDS: Memantine 10 MG Tab PO SCH ×2 (09:39→21:09)
[2019-02-28] MEDS: cycloSPORINE Ophth Drops U/D Box of 30 EYEBOTH SCH ×2 (09:39→21:08)
[2019-02-28] MEDS: PEG 400/Propylene Glycol Ophth Soln 15 ML Bottle EYEBOTH SCH ×2 (09:39→21:08)
[2019-02-28] MEDS: Calcium Carbonate 500 MG Tablet PO SCH ×2 (09:39→21:09)
[2019-02-28] MEDS: Cholecalciferol (Vitamin D3) 25 MCG Tab PO SCH (09:40)
[2019-02-28] MEDS: Gabapentin 300 MG Cap PO SCH ×3 (09:47→21:09)
[2019-02-28] MEDS ORDERED: Zolpidem 10 MG Tab PO SCH (21:00)
[2019-03-01] MEDS: DULoxetine 60 MG Cap PO SCH ×2 (09:24→20:02)
[2019-03-01] MEDS: atorvaSTATin 10 MG Tab PO SCH (09:25)
[2019-03-01] MEDS: Apixaban 5 MG Tab PO SCH ×2 (09:25→20:02)
[2019-03-01] MEDS: Folic Acid 1 MG Tab PO SCH (09:25)
[2019-03-01] MEDS: Memantine 10 MG Tab PO SCH ×2 (09:26→20:03)
[2019-03-01] MEDS: Calcium Carbonate 500 MG Tablet PO SCH ×2 (09:26→20:04)
[2019-03-01] MEDS: cycloSPORINE Ophth Drops U/D Box of 30 EYEBOTH SCH ×2 (09:26→20:04)
[2019-03-01] MEDS: PEG 400/Propylene Glycol Ophth Soln 15 ML Bottle EYEBOTH SCH ×2 (09:26→20:05)
[2019-03-01] MEDS: Cholecalciferol (Vitamin D3) 25 MCG Tab PO SCH (09:27)
[2019-03-01] MEDS: traMADol 50 MG Tab PO PRN ×2 (09:27→20:13)
[2019-03-01] MEDS: Multivitamin Tab PO SCH (09:27)
[2019-03-01] MEDS: Gabapentin 300 MG Cap PO SCH ×3 (09:46→20:14)
[2019-03-02] MEDS: traMADol 50 MG Tab PO PRN ×3 (04:53→21:28)
[2019-03-02] MEDS: Apixaban 5 MG Tab PO SCH ×2 (08:23→21:11)
[2019-03-02] MEDS: DULoxetine 60 MG Cap PO SCH ×2 (08:23→21:11)
[2019-03-02] MEDS: Memantine 10 MG Tab PO SCH ×2 (08:23→21:12)
[2019-03-02] MEDS: Calcium Carbonate 500 MG Tablet PO SCH ×2 (08:23→21:13)
[2019-03-02] MEDS: atorvaSTATin 10 MG Tab PO SCH (08:23)
[2019-03-02] MEDS: Folic Acid 1 MG Tab PO SCH (08:23)
[2019-03-02] MEDS: cycloSPORINE Ophth Drops U/D Box of 30 EYEBOTH SCH ×2 (08:24→21:16)
[2019-03-02] MEDS: Gabapentin 300 MG Cap PO SCH ×3 (08:24→21:13)
[2019-03-02] MEDS: Cholecalciferol (Vitamin D3) 25 MCG Tab PO SCH (08:25)
[2019-03-02] MEDS: Multivitamin Tab PO SCH (08:25)
[2019-03-02] MEDS: PEG 400/Propylene Glycol Ophth Soln 15 ML Bottle EYEBOTH SCH ×2 (08:25→21:14)
[2019-03-02] MEDS: Zolpidem 5 MG Tab PO PRN (22:12)
[2019-03-03] MEDS: traMADol 50 MG Tab PO PRN ×3 (03:50→22:09)
[2019-03-03] MEDS: DULoxetine 60 MG Cap PO SCH ×2 (08:11→20:32)
[2019-03-03] MEDS: Apixaban 5 MG Tab PO SCH ×2 (08:11→20:32)
[2019-03-03] MEDS: Folic Acid 1 MG Tab PO SCH (08:12)
[2019-03-03] MEDS: atorvaSTATin 10 MG Tab PO SCH (08:12)
[2019-03-03] MEDS: Gabapentin 300 MG Cap PO SCH ×3 (08:13→20:46)
[2019-03-03] MEDS: Calcium Carbonate 500 MG Tablet PO SCH ×2 (08:13→20:46)
[2019-03-03] MEDS: Memantine 10 MG Tab PO SCH ×2 (08:13→20:45)
[2019-03-03] MEDS: Cholecalciferol (Vitamin D3) 25 MCG Tab PO SCH (08:14)
[2019-03-03] MEDS: Multivitamin Tab PO SCH (08:14)
[2019-03-03] MEDS: PEG 400/Propylene Glycol Ophth Soln 15 ML Bottle EYEBOTH SCH ×2 (08:14→20:30)
[2019-03-03] MEDS: cycloSPORINE Ophth Drops U/D Box of 30 EYEBOTH SCH ×2 (08:14→20:31)
[2019-03-03] MEDS: Sulfamethoxazole/Trimethoprim 800-160 MG Tab PO SCH ×2 (16:10→20:47)
[2019-03-03] MEDS: Zolpidem 5 MG Tab PO PRN (22:09)
[2019-03-04] MEDS: traMADol 50 MG Tab PO PRN ×3 (04:09→19:42)
[2019-03-04] MEDS: Folic Acid 1 MG Tab PO SCH (08:55)
[2019-03-04] MEDS: Gabapentin 300 MG Cap PO SCH ×3 (08:55→20:35)
[2019-03-04] MEDS: atorvaSTATin 10 MG Tab PO SCH (08:55)
[2019-03-04] MEDS: Calcium Carbonate 500 MG Tablet PO SCH ×2 (08:56→20:36)
[2019-03-04] MEDS: Memantine 10 MG Tab PO SCH ×2 (08:56→20:35)
[2019-03-04] MEDS: Sulfamethoxazole/Trimethoprim 800-160 MG Tab PO SCH ×2 (08:56→20:36)
[2019-03-04] MEDS: DULoxetine 60 MG Cap PO SCH ×2 (08:56→20:35)
[2019-03-04] MEDS: cycloSPORINE Ophth Drops U/D Box of 30 EYEBOTH SCH ×2 (08:57→20:36)
[2019-03-04] MEDS: Apixaban 5 MG Tab PO SCH ×2 (08:57→20:35)
[2019-03-04] MEDS: Multivitamin Tab PO SCH (08:58)
[2019-03-04] MEDS: Cholecalciferol (Vitamin D3) 25 MCG Tab PO SCH (08:58)
[2019-03-04] MEDS: PEG 400/Propylene Glycol Ophth Soln 15 ML Bottle EYEBOTH SCH ×2 (08:58→20:36)
[2019-03-04] MEDS ORDERED: Bisacodyl 5 MG Tab PO PRN (11:10)
[2019-03-04] MEDS ORDERED: Magnesium Hydroxide 400 MG/5 ML Susp 30 ML Cup PO PRN (11:11)
[2019-03-04] MEDS: Polyethylene Glycol 3350 Powder 17 GM Packet PO SCH (12:03)
--- NOTE | 2019-03-04 14:10 | PCM.PN ---
- General Info Date of Service: 03/04/19 Admission Dx/Problem (Free Text): Swing bed admission s/p right hip fracture pinning Subjective Update: Patient found to have UTI yesterday, having increased frequency, reporting over 7 urinations just since last night. UA was positive for nitrites, UC shows gram negative rods growing >100,000 colonies. She is having trouble sleeping was started on Ambien night but given 10 mg instead of 5 mg she takes at home. PT has had trouble getting her to do therapies since she got the 10 mg of Ambien. Care conference today at 1pm. No fevers, chills, nausea or vomiting. Ortho appt tomorrow in [place]. - Patient Data Vitals - Most Recent: Last Vital Signs Temp 36.7 C 03/04/19 01:54 Pulse 76 03/04/19 01:54 Resp 20 03/04/19 01:54 BP 136/72 03/04/19 01:54 Pulse Ox 93 L 03/04/19 01:54 Weight - Most Recent: 69.967 kg Francisco Javier Results Last 24 Hours: Microbiology 03/03/19 11:10 Urine Culture - Preliminary Urine, Catheterized Gram Negative Rods Med Orders - Current: Current Medications Acetaminophen (Tylenol Arthritis Pain) 650 mg PO Q4H PRN PRN Reason: pain Apixaban (Eliquis) 2.5 mg PO BID [facility] Stop: 03/29/19 09:01 Last Admin: 03/04/19 08:57 Dose: 2.5 mg Atorvastatin Calcium (Lipitor) 10 mg PO DAILY [facility] Last Admin: 03/04/19 08:55 Dose: 10 mg Betamethasone Dipropionate (Diprolene Af 0.05% Crm) 0 gm TOP ASDIRECTED PRN PRN Reason: EZCEMA Bisacodyl (Dulcolax) 5 mg PO DAILY PRN PRN Reason: Constipation Calcium Carbonate/Glycine (Oyster Shell Calcium) 500 mg PO BID [facility] Last Admin: 03/04/19 08:56 Dose: 500 mg Cholecalciferol (Vitamin D3) 25 mcg PO DAILY [facility] Last Admin: 03/04/19 08:58 Dose: 25 mcg Cyclosporine (Restasis) 0 each EYEBOTH BID [facility] Last Admin: 03/04/19 08:57 Dose: 1 drop Duloxetine HCl (Cymbalta) 60 mg PO BID [facility] Last Admin: 03/04/19 08:56 Dose: 60 mg Folic Acid (Folic Acid) 1 mg PO DAILY [facility] Last Admin: 03/04/19 08:55 Dose: 1 mg Gabapentin (Neurontin) 900 mg PO TID [facility] Last Admin: 03/04/19 08:55 Dose: 900 mg Lutein (Lutein) 10 mg PO DAILY [facility] Last Admin: 03/04/19 08:58 Dose: 10 mg Magnesium Hydroxide (Milk Of Magnesia) 30 ml PO Q6H PRN PRN Reason: Constipation Memantine (Namenda) 10 mg PO BID [facility] Last Admin: 03/04/19 08:56 Dose: 10 mg Methotrexate (Methotrexate) 15 mg PO TH@0800 [facility] Last Admin: 02/28/19 09:37 Dose: 15 mg Multivitamins/Minerals/Vitamin C (Tab-A-Lamont) 1 tab PO DAILY [facility] Last Admin: 03/04/19 08:58 Dose: 1 tab Non-Formulary Medication (Epinephrine [Epipen]) 0.3 mg IM ASDIRECTED PRN PRN Reason: ALLERGIC REACTION Polyethylene Glycol (Miralax) 17 gm PO DAILY [facility] Last Admin: 03/04/19 12:03 Dose: 17 gm Propylene Glycol (Systane Lubricant) 0 ml EYEBOTH BID [facility] Last Admin: 03/04/19 08:58 Dose: 1 drop Tramadol HCl (Ultram) 50 mg PO Q6H PRN PRN Reason: Pain Last Admin: 03/04/19 09:47 Dose: 50 mg Trimethoprim/Sulfamethoxazole (Septra Ds) 1 tab PO BID [facility] Last Admin: 03/04/19 08:56 Dose: 1 tab Zolpidem Tartrate (Ambien) 5 mg PO BEDTIME PRN PRN Reason: INSOMNIA Last Admin: 03/03/19 22:09 Dose: 5 mg Discontinued Medications Betamethasone Dipropionate (Diprolene Af 0.05% Crm) 0 gm TOP ASDIRECTED PRN PRN Reason: EZCEMA Mirtazapine (Remeron) 7.5 mg PO BEDTIME [facility] Last Admin: 02/27/19 20:30 Dose: 7.5 mg Non-Formulary Medication (Naltrexone Oral Solution) 4.5 ml PO DAILY [facility] Last Admin: 02/28/19 18:49 Dose: Not Given Zolpidem Tartrate (Ambien) 10 mg PO BEDTIME [facility] Last Admin: 02/28/19 21:10 Dose: 10 mg - Exam General: Alert, Oriented, Cooperative Lungs: Clear to Auscultation, Normal Respiratory Effort Cardiovascular: Regular Rate, Regular Rhythm GI/Abdominal Exam: Normal Bowel Sounds, Soft, Non-Tender Peripheral Pulses: 2+: Dorsalis Pedis (L), Dorsalis Pedis (R) Skin: Warm, Dry, Intact Psy/Mental Status: Normal Affect - Problem List & Annotations (1) S/P right hip fracture SNOMED Code(s): 456255879 Code(s): Z87.81 - PERSONAL HISTORY OF (HEALED) TRAUMATIC FRACTURE Status: Acute Current Visit: Yes (2) UTI (urinary tract infection) SNOMED Code(s): 78175659 Code(s): N39.0 - URINARY TRACT INFECTION, SITE NOT SPECIFIED Status: Acute Current Visit: Yes Onset Date: ~03/03/19 Qualifiers: Urinary tract infection type: acute cystitis (3) Overactive bladder SNOMED Code(s): 657332967 Code(s): N32.81 - OVERACTIVE BLADDER Status: Chronic Current Visit: Yes (4) Neurocognitive deficits SNOMED Code(s): 915112083 Code(s): R29.818 - OTHER SYMPTOMS AND SIGNS INVOLVING THE NERVOUS SYSTEM; R41.89 - OTH SYMPTOMS AND SIGNS W COGNITIVE FUNCTIONS AND AWARENESS Status: Chronic Current Visit: Yes - Problem List Review Problem List Initiated/Reviewed/Updated: Yes - My Orders Last 24 Hours: My Active Orders 03/03/19 15:15 Sulfamethoxazole/Trimethoprim [Septra DS] 1 tab PO BID 03/03/19 15:29 Acetaminophen [Tylenol Arthritis Pain] 650 mg PO Q4H PRN 03/04/19 11:10 Bisacodyl [Dulcolax] 5 mg PO DAILY PRN 03/04/19 11:11 Magnesium Hydroxide [Milk of Magnesia] 30 ml PO Q6H PRN 03/04/19 11:15 Polyethylene Glycol 3350 [MiraLAX] 17 gm PO DAILY - Plan Plan:: 1. UTI: Bactrim DS day 2/3 2. Regular diet, will allow for room service option so she can order what she likes and also have Diet Coke with meals. 3. PT/OT, Toe touch weight bearing right hip. Appt tomorrow with Orthopedics in [place] at 11 am, will go out on pass and find out from ortho if she can be full weight bearing. 4. Overactive bladder prior to admission but not on anything, will start Toviaz 4 mg daily today. 5. Ambien 5 mg as needed currently, if Toviaz helps decrease nocturia, but still having trouble sleeping, may try Trazodone if she has not been on this in the past.
[2019-03-04] MEDS: Saccharomyces Boulardii (Probiotic) 250 MG Cap PO SCH (15:02)
[2019-03-04] MEDS: Fesoterodine Fumarate 4 MG Tab PO SCH (17:01)
[2019-03-05] MEDS: traMADol 50 MG Tab PO PRN ×2 (07:26→18:45)
[2019-03-05] MEDS: Acetaminophen 650 MG Tab.ER PO PRN ×2 (08:25→20:58)
[2019-03-05] MEDS: Gabapentin 300 MG Cap PO SCH ×3 (08:25→20:58)
[2019-03-05] MEDS: Apixaban 5 MG Tab PO SCH ×2 (08:26→20:49)
[2019-03-05] MEDS: DULoxetine 60 MG Cap PO SCH ×2 (08:26→20:49)
[2019-03-05] MEDS: PEG 400/Propylene Glycol Ophth Soln 15 ML Bottle EYEBOTH SCH ×2 (08:26→20:53)
[2019-03-05] MEDS: Multivitamin Tab PO SCH (08:26)
[2019-03-05] MEDS: Saccharomyces Boulardii (Probiotic) 250 MG Cap PO SCH (08:26)
[2019-03-05] MEDS: atorvaSTATin 10 MG Tab PO SCH (08:27)
[2019-03-05] MEDS: Sulfamethoxazole/Trimethoprim 800-160 MG Tab PO SCH ×2 (08:27→20:53)
[2019-03-05] MEDS: Polyethylene Glycol 3350 Powder 17 GM Packet PO SCH (08:27)
[2019-03-05] MEDS: Memantine 10 MG Tab PO SCH ×2 (08:27→20:50)
[2019-03-05] MEDS: Calcium Carbonate 500 MG Tablet PO SCH ×2 (08:27→20:50)
[2019-03-05] MEDS: Folic Acid 1 MG Tab PO SCH (08:27)
[2019-03-05] MEDS: Cholecalciferol (Vitamin D3) 25 MCG Tab PO SCH (08:27)
[2019-03-05] MEDS: cycloSPORINE Ophth Drops U/D Box of 30 EYEBOTH SCH ×2 (08:28→20:51)
[2019-03-05] MEDS: Fesoterodine Fumarate 4 MG Tab PO SCH (14:37)
[2019-03-05] MEDS: Zolpidem 5 MG Tab PO PRN (21:02)
[2019-03-06] MEDS: Saccharomyces Boulardii (Probiotic) 250 MG Cap PO SCH (08:33)
[2019-03-06] MEDS: Apixaban 5 MG Tab PO SCH ×2 (08:33→21:16)
[2019-03-06] MEDS: Folic Acid 1 MG Tab PO SCH (08:33)
[2019-03-06] MEDS: DULoxetine 60 MG Cap PO SCH ×2 (08:33→21:16)
[2019-03-06] MEDS: Polyethylene Glycol 3350 Powder 17 GM Packet PO SCH (08:34)
[2019-03-06] MEDS: Cholecalciferol (Vitamin D3) 25 MCG Tab PO SCH (08:34)
[2019-03-06] MEDS: Memantine 10 MG Tab PO SCH ×2 (08:34→21:16)
[2019-03-06] MEDS: Calcium Carbonate 500 MG Tablet PO SCH ×2 (08:34→21:16)
[2019-03-06] MEDS: Fesoterodine Fumarate 4 MG Tab PO SCH (08:34)
[2019-03-06] MEDS: Gabapentin 300 MG Cap PO SCH ×3 (08:34→21:24)
[2019-03-06] MEDS: atorvaSTATin 10 MG Tab PO SCH (08:34)
[2019-03-06] MEDS: Multivitamin Tab PO SCH (08:35)
[2019-03-06] MEDS: cycloSPORINE Ophth Drops U/D Box of 30 EYEBOTH SCH ×2 (08:52→21:26)
[2019-03-06] MEDS: PEG 400/Propylene Glycol Ophth Soln 15 ML Bottle EYEBOTH SCH ×2 (08:52→21:27)
[2019-03-06] MEDS: Acetaminophen 650 MG Tab.ER PO PRN ×2 (08:56→16:01)
[2019-03-06] MEDS: traMADol 50 MG Tab PO PRN ×2 (12:43→21:25)
[2019-03-06] MEDS: Zolpidem 5 MG Tab PO PRN (21:25)
[2019-03-07] MEDS: traMADol 50 MG Tab PO PRN ×4 (03:00→22:54)
[2019-03-07] MEDS: Acetaminophen 650 MG Tab.ER PO PRN ×3 (08:18→20:34)
[2019-03-07] MEDS: Methotrexate 2.5 MG Tab PO SCH (08:28)
[2019-03-07] MEDS: Memantine 10 MG Tab PO SCH ×2 (08:32→20:36)
[2019-03-07] MEDS: Saccharomyces Boulardii (Probiotic) 250 MG Cap PO SCH (08:33)
[2019-03-07] MEDS: DULoxetine 60 MG Cap PO SCH ×2 (08:33→20:35)
[2019-03-07] MEDS: Folic Acid 1 MG Tab PO SCH (08:33)
[2019-03-07] MEDS: atorvaSTATin 10 MG Tab PO SCH (08:33)
[2019-03-07] MEDS: Apixaban 5 MG Tab PO SCH ×2 (08:33→20:36)
[2019-03-07] MEDS: Gabapentin 300 MG Cap PO SCH ×3 (08:34→20:36)
[2019-03-07] MEDS: Fesoterodine Fumarate 4 MG Tab PO SCH (08:34)
[2019-03-07] MEDS: Multivitamin Tab PO SCH (08:34)
[2019-03-07] MEDS: Cholecalciferol (Vitamin D3) 25 MCG Tab PO SCH (08:34)
[2019-03-07] MEDS: Calcium Carbonate 500 MG Tablet PO SCH ×2 (08:34→20:35)
[2019-03-07] MEDS: Polyethylene Glycol 3350 Powder 17 GM Packet PO SCH (08:39)
[2019-03-07] MEDS: cycloSPORINE Ophth Drops U/D Box of 30 EYEBOTH SCH ×2 (08:40→20:36)
[2019-03-07] MEDS: PEG 400/Propylene Glycol Ophth Soln 15 ML Bottle EYEBOTH SCH ×2 (08:41→21:00)
[2019-03-07] MEDS: Zolpidem 5 MG Tab PO PRN (20:34)
[2019-03-08] MEDS: traMADol 50 MG Tab PO PRN ×2 (05:32→17:38)
[2019-03-08] MEDS: Cholecalciferol (Vitamin D3) 25 MCG Tab PO SCH (08:45)
[2019-03-08] MEDS: Multivitamin Tab PO SCH (08:45)
[2019-03-08] MEDS: Calcium Carbonate 500 MG Tablet PO SCH ×2 (08:45→21:53)
[2019-03-08] MEDS: DULoxetine 60 MG Cap PO SCH ×2 (08:45→21:53)
[2019-03-08] MEDS: Apixaban 5 MG Tab PO SCH ×2 (08:45→21:53)
[2019-03-08] MEDS: Gabapentin 300 MG Cap PO SCH ×3 (08:45→21:53)
[2019-03-08] MEDS: Fesoterodine Fumarate 4 MG Tab PO SCH (08:45)
[2019-03-08] MEDS: Memantine 10 MG Tab PO SCH ×2 (08:45→21:53)
[2019-03-08] MEDS: Folic Acid 1 MG Tab PO SCH (08:45)
[2019-03-08] MEDS: Saccharomyces Boulardii (Probiotic) 250 MG Cap PO SCH (08:45)
[2019-03-08] MEDS: atorvaSTATin 10 MG Tab PO SCH (08:45)
[2019-03-08] MEDS: cycloSPORINE Ophth Drops U/D Box of 30 EYEBOTH SCH ×2 (08:46→21:54)
[2019-03-08] MEDS: Polyethylene Glycol 3350 Powder 17 GM Packet PO SCH (08:46)
[2019-03-08] MEDS: PEG 400/Propylene Glycol Ophth Soln 15 ML Bottle EYEBOTH SCH ×2 (08:48→21:54)
[2019-03-08] MEDS: Melatonin 3 MG Tab PO PRN (21:53)
[2019-03-09] MEDS: traMADol 50 MG Tab PO PRN ×2 (08:40→21:23)
[2019-03-09] MEDS: DULoxetine 60 MG Cap PO SCH ×2 (09:37→21:22)
[2019-03-09] MEDS: Apixaban 5 MG Tab PO SCH ×2 (09:38→21:22)
[2019-03-09] MEDS: Saccharomyces Boulardii (Probiotic) 250 MG Cap PO SCH (09:38)
[2019-03-09] MEDS: Folic Acid 1 MG Tab PO SCH (09:39)
[2019-03-09] MEDS: atorvaSTATin 10 MG Tab PO SCH (09:41)
[2019-03-09] MEDS: Polyethylene Glycol 3350 Powder 17 GM Packet PO SCH (09:42)
[2019-03-09] MEDS: cycloSPORINE Ophth Drops U/D Box of 30 EYEBOTH SCH ×2 (09:43→21:24)
[2019-03-09] MEDS: Calcium Carbonate 500 MG Tablet PO SCH ×2 (09:43→21:22)
[2019-03-09] MEDS: Memantine 10 MG Tab PO SCH ×2 (09:43→21:22)
[2019-03-09] MEDS: Gabapentin 300 MG Cap PO SCH ×3 (09:46→21:22)
[2019-03-09] MEDS: PEG 400/Propylene Glycol Ophth Soln 15 ML Bottle EYEBOTH SCH ×2 (09:48→21:25)
[2019-03-09] MEDS: Fesoterodine Fumarate 4 MG Tab PO SCH (09:49)
[2019-03-09] MEDS: Cholecalciferol (Vitamin D3) 25 MCG Tab PO SCH (09:49)
[2019-03-09] MEDS: Multivitamin Tab PO SCH (09:50)
[2019-03-09] MEDS: Melatonin 3 MG Tab PO PRN (21:23)
[2019-03-10] MEDS: traMADol 50 MG Tab PO PRN ×2 (08:45→14:46)
[2019-03-10] MEDS: Apixaban 5 MG Tab PO SCH ×2 (08:48→20:08)
[2019-03-10] MEDS: Saccharomyces Boulardii (Probiotic) 250 MG Cap PO SCH (08:48)
[2019-03-10] MEDS: DULoxetine 60 MG Cap PO SCH ×2 (08:48→20:07)
[2019-03-10] MEDS: Folic Acid 1 MG Tab PO SCH (08:50)
[2019-03-10] MEDS: atorvaSTATin 10 MG Tab PO SCH (08:50)
[2019-03-10] MEDS: Memantine 10 MG Tab PO SCH ×2 (08:51→20:08)
[2019-03-10] MEDS: Calcium Carbonate 500 MG Tablet PO SCH ×2 (08:51→20:09)
[2019-03-10] MEDS: Gabapentin 300 MG Cap PO SCH ×3 (08:51→20:13)
[2019-03-10] MEDS: cycloSPORINE Ophth Drops U/D Box of 30 EYEBOTH SCH ×2 (08:51→20:15)
[2019-03-10] MEDS: Polyethylene Glycol 3350 Powder 17 GM Packet PO SCH (08:51)
[2019-03-10] MEDS: Cholecalciferol (Vitamin D3) 25 MCG Tab PO SCH (08:53)
[2019-03-10] MEDS: Fesoterodine Fumarate 4 MG Tab PO SCH (08:53)
[2019-03-10] MEDS: PEG 400/Propylene Glycol Ophth Soln 15 ML Bottle EYEBOTH SCH ×2 (08:53→20:16)
[2019-03-10] MEDS: Multivitamin Tab PO SCH (08:53)
[2019-03-10] MEDS: Acetaminophen 650 MG Tab.ER PO PRN (16:55)
[2019-03-11] MEDS: DULoxetine 60 MG Cap PO SCH ×2 (08:00→20:37)
[2019-03-11] MEDS: Saccharomyces Boulardii (Probiotic) 250 MG Cap PO SCH (08:01)
[2019-03-11] MEDS: Apixaban 5 MG Tab PO SCH ×2 (08:01→20:37)
[2019-03-11] MEDS: Gabapentin 300 MG Cap PO SCH ×3 (08:01→20:40)
[2019-03-11] MEDS: Folic Acid 1 MG Tab PO SCH (08:01)
[2019-03-11] MEDS: Calcium Carbonate 500 MG Tablet PO SCH ×2 (08:02→20:36)
[2019-03-11] MEDS: cycloSPORINE Ophth Drops U/D Box of 30 EYEBOTH SCH ×2 (08:03→20:35)
[2019-03-11] MEDS: atorvaSTATin 10 MG Tab PO SCH (08:03)
[2019-03-11] MEDS: PEG 400/Propylene Glycol Ophth Soln 15 ML Bottle EYEBOTH SCH ×2 (08:03→20:41)
[2019-03-11] MEDS: Memantine 10 MG Tab PO SCH ×2 (08:03→20:39)
[2019-03-11] MEDS: Polyethylene Glycol 3350 Powder 17 GM Packet PO SCH (08:03)
[2019-03-11] MEDS: Fesoterodine Fumarate 4 MG Tab PO SCH (08:04)
[2019-03-11] MEDS: Multivitamin Tab PO SCH (08:04)
[2019-03-11] MEDS: Cholecalciferol (Vitamin D3) 25 MCG Tab PO SCH (08:04)
[2019-03-11] MEDS: Acetaminophen 650 MG Tab.ER PO PRN ×3 (08:58→17:32)
[2019-03-11] MEDS: traMADol 50 MG Tab PO PRN ×3 (09:22→20:42)
[2019-03-11] MEDS: Betamethasone Dipropionate 0.05% Crm 45 GM Tube TOP SCH ×2 (17:14→20:39)
[2019-03-11] MEDS: Zolpidem 5 MG Tab PO PRN (20:42)
[2019-03-12] MEDS: DULoxetine 60 MG Cap PO SCH ×2 (08:59→20:46)
[2019-03-12] MEDS: Betamethasone Dipropionate 0.05% Crm 45 GM Tube TOP SCH ×2 (08:59→20:50)
[2019-03-12] MEDS: Apixaban 5 MG Tab PO SCH ×2 (09:00→20:46)
[2019-03-12] MEDS: Saccharomyces Boulardii (Probiotic) 250 MG Cap PO SCH (09:01)
[2019-03-12] MEDS: Folic Acid 1 MG Tab PO SCH (09:01)
[2019-03-12] MEDS: atorvaSTATin 10 MG Tab PO SCH (09:01)
[2019-03-12] MEDS: Polyethylene Glycol 3350 Powder 17 GM Packet PO SCH (09:02)
[2019-03-12] MEDS: Memantine 10 MG Tab PO SCH ×2 (09:03→20:47)
[2019-03-12] MEDS: Gabapentin 300 MG Cap PO SCH ×3 (09:04→20:47)
[2019-03-12] MEDS: Calcium Carbonate 500 MG Tablet PO SCH ×2 (09:04→20:47)
[2019-03-12] MEDS: cycloSPORINE Ophth Drops U/D Box of 30 EYEBOTH SCH ×2 (09:05→20:47)
[2019-03-12] MEDS: PEG 400/Propylene Glycol Ophth Soln 15 ML Bottle EYEBOTH SCH ×2 (09:06→20:48)
[2019-03-12] MEDS: Cholecalciferol (Vitamin D3) 25 MCG Tab PO SCH (09:07)
[2019-03-12] MEDS: Fesoterodine Fumarate 4 MG Tab PO SCH (09:07)
[2019-03-12] MEDS: Multivitamin Tab PO SCH (09:07)
[2019-03-12] MEDS: traMADol 50 MG Tab PO PRN ×3 (09:08→21:25)
[2019-03-12] MEDS: Acetaminophen 650 MG Tab.ER PO PRN (10:51)
[2019-03-12] MEDS: Acetaminophen 500 MG Tab PO SCH (21:25)
[2019-03-12] MEDS: Melatonin 3 MG Tab PO PRN (22:21)
[2019-03-13] MEDS: Acetaminophen 500 MG Tab PO SCH ×3 (05:59→21:27)
[2019-03-13] MEDS: traMADol 50 MG Tab PO PRN ×2 (08:51→16:06)
[2019-03-13] MEDS: Betamethasone Dipropionate 0.05% Crm 45 GM Tube TOP SCH ×2 (08:53→20:03)
[2019-03-13] MEDS: DULoxetine 60 MG Cap PO SCH ×2 (08:53→20:03)
[2019-03-13] MEDS: Saccharomyces Boulardii (Probiotic) 250 MG Cap PO SCH (08:54)
[2019-03-13] MEDS: Apixaban 5 MG Tab PO SCH ×2 (08:54→20:03)
[2019-03-13] MEDS: Memantine 10 MG Tab PO SCH ×2 (08:55→20:04)
[2019-03-13] MEDS: Polyethylene Glycol 3350 Powder 17 GM Packet PO SCH (08:55)
[2019-03-13] MEDS: atorvaSTATin 10 MG Tab PO SCH (08:55)
[2019-03-13] MEDS: PEG 400/Propylene Glycol Ophth Soln 15 ML Bottle EYEBOTH SCH ×2 (08:55→20:05)
[2019-03-13] MEDS: cycloSPORINE Ophth Drops U/D Box of 30 EYEBOTH SCH ×2 (08:55→20:05)
[2019-03-13] MEDS: Multivitamin Tab PO SCH (08:55)
[2019-03-13] MEDS: Cholecalciferol (Vitamin D3) 25 MCG Tab PO SCH (08:55)
[2019-03-13] MEDS: Calcium Carbonate 500 MG Tablet PO SCH ×2 (08:55→20:05)
[2019-03-13] MEDS: Folic Acid 1 MG Tab PO SCH (08:55)
[2019-03-13] MEDS: Fesoterodine Fumarate 4 MG Tab PO SCH (08:55)
[2019-03-13] MEDS: Gabapentin 300 MG Cap PO SCH ×3 (08:56→20:04)
[2019-03-13] MEDS: Melatonin 3 MG Tab PO PRN (20:05)
[2019-03-14] MEDS: Acetaminophen 500 MG Tab PO SCH ×3 (05:43→21:32)
[2019-03-14] MEDS: Memantine 10 MG Tab PO SCH ×2 (08:11→21:32)
[2019-03-14] MEDS: atorvaSTATin 10 MG Tab PO SCH (08:11)
[2019-03-14] MEDS: Folic Acid 1 MG Tab PO SCH (08:11)
[2019-03-14] MEDS: traMADol 50 MG Tab PO PRN ×3 (08:11→22:36)
[2019-03-14] MEDS: Gabapentin 300 MG Cap PO SCH ×3 (08:11→21:38)
[2019-03-14] MEDS: Calcium Carbonate 500 MG Tablet PO SCH ×2 (08:12→21:32)
[2019-03-14] MEDS: PEG 400/Propylene Glycol Ophth Soln 15 ML Bottle EYEBOTH SCH ×2 (08:12→21:32)
[2019-03-14] MEDS: Betamethasone Dipropionate 0.05% Crm 45 GM Tube TOP SCH ×2 (08:12→21:30)
[2019-03-14] MEDS: Methotrexate 2.5 MG Tab PO SCH (08:12)
[2019-03-14] MEDS: Fesoterodine Fumarate 4 MG Tab PO SCH (08:12)
[2019-03-14] MEDS: Cholecalciferol (Vitamin D3) 25 MCG Tab PO SCH (08:12)
[2019-03-14] MEDS: DULoxetine 60 MG Cap PO SCH ×2 (08:12→21:32)
[2019-03-14] MEDS: Apixaban 5 MG Tab PO SCH ×2 (08:12→21:32)
[2019-03-14] MEDS: Multivitamin Tab PO SCH (08:12)
[2019-03-14] MEDS: Saccharomyces Boulardii (Probiotic) 250 MG Cap PO SCH (08:12)
[2019-03-14] MEDS: cycloSPORINE Ophth Drops U/D Box of 30 EYEBOTH SCH ×2 (08:13→21:58)
[2019-03-14] MEDS: Polyethylene Glycol 3350 Powder 17 GM Packet PO SCH (08:13)
[2019-03-14] MEDS: Zolpidem 5 MG Tab PO PRN (21:39)
[2019-03-15] MEDS: traMADol 50 MG Tab PO PRN (08:13)
[2019-03-15] MEDS: Betamethasone Dipropionate 0.05% Crm 45 GM Tube TOP SCH (08:14)
[2019-03-15] MEDS: Acetaminophen 500 MG Tab PO SCH ×2 (08:14→14:30)
[2019-03-15] MEDS: DULoxetine 60 MG Cap PO SCH (08:14)
[2019-03-15] MEDS: Apixaban 5 MG Tab PO SCH (08:15)
[2019-03-15] MEDS: Saccharomyces Boulardii (Probiotic) 250 MG Cap PO SCH (08:16)
[2019-03-15] MEDS: Folic Acid 1 MG Tab PO SCH (08:16)
[2019-03-15] MEDS: atorvaSTATin 10 MG Tab PO SCH (08:16)
[2019-03-15] MEDS: cycloSPORINE Ophth Drops U/D Box of 30 EYEBOTH SCH (08:17)
[2019-03-15] MEDS: Calcium Carbonate 500 MG Tablet PO SCH (08:17)
[2019-03-15] MEDS: Memantine 10 MG Tab PO SCH (08:17)
[2019-03-15] MEDS: Polyethylene Glycol 3350 Powder 17 GM Packet PO SCH (08:17)
[2019-03-15] MEDS: PEG 400/Propylene Glycol Ophth Soln 15 ML Bottle EYEBOTH SCH (08:18)
[2019-03-15] MEDS: Multivitamin Tab PO SCH (08:18)
[2019-03-15] MEDS: Fesoterodine Fumarate 4 MG Tab PO SCH (08:18)
[2019-03-15] MEDS: Cholecalciferol (Vitamin D3) 25 MCG Tab PO SCH (08:18)
[2019-03-15] MEDS: Gabapentin 300 MG Cap PO SCH ×2 (08:23→14:30)
[2019-03-15] MEDS ORDERED: traMADol 50 MG Tab PO ONE (15:22)
--- NOTE | 2019-03-16 05:09 | DISCH ---
DISCHARGE DATE: 03/15/2019 HISTORY: Ms. Hogue is an 83-year-old woman from [place], [place], with a history of dementia with anxiety, hyperlipidemia, and back pain. She sustained a fall and fractured her right hip. She underwent ORIF at [facility] on 02/22/2019, and following discharge, she was sent to [facility] [place] swing bed for further rehab. She has been doing well. Now, she is up walking in the halls with a walker and is ready for discharge. PHYSICAL EXAMINATION: The patient's exam at the time of discharge reveals her to be very forgetful, but neuro exam is otherwise symmetric. She moves her extremities spontaneously. She has a well-healed 3 cm incision in the lateral hip overlying the greater trochanter. Hip is comfortable with internal and external rotation. Lungs are clear. Heart, regular. Abdomen, soft. Extremities show no edema. ASSESSMENT: 1. Hip fracture, status post open reduction and internal fixation, now improving. 2. Dementia with behavior disorder. 3. Hyperlipidemia. 4. Anxiety. PLAN: She is discharged to home in stable condition, to continue medications as follows: 1. Eliquis 2.5 mg b.i.d. for an additional 14 days, ending on 03/29/2019. 2. Tylenol Extra Strength 1000 mg every 8 hours p.r.n. pain. 3. Atorvastatin 10 mg daily. 4. Calcium with vitamin D 1 tablet daily. 5. Calcium carbonate 500 mg daily. 6. Vitamin D3, 1000 units daily. 7. Restasis eyedrops 1 drop both eyes b.i.d. 8. Duloxetine 60 mg b.i.d. 9. Folic acid 1 mg daily. 10.Gabapentin 900 mg t.i.d. 11.Lutein 10 mg daily. 12.Namenda 10 mg b.i.d. 13.Methotrexate 15 mg orally every . 14.Multiple vitamin 1 daily. 15.MiraLax 1 packet daily. 16.Systane eye drops p.r.n. 17.Naltrexone oral solution 4.5 mL daily. 18.Betamethasone ointment b.i.d. p.r.n. She is to have followup with her regular physician on a p.r.n. basis and call should there be questions or problems. /[phone] [id number] MOHAN
== END 2019-03-15 18:40 | disposition home or self-care (01) | DRG 560 ==
LOC: FB.MS 12:39
PROVIDERS: ADMIT Family Medicine; ATTEND Family Medicine
DX: S72.011D Unspecified intracapsular fracture of right femur, subsequent encounter for closed fracture with routine healing (principal); N39.0 Urinary tract infection, site not specified; Z66 Do not resuscitate; W19.XXXD Unspecified fall, subsequent encounter; Z98.890 Other specified postprocedural states; M19.90 Unspecified osteoarthritis, unspecified site; M54.9 Dorsalgia, unspecified; G89.29 Other chronic pain; E78.5 Hyperlipidemia, unspecified; M79.673 Pain in unspecified foot; F41.9 Anxiety disorder, unspecified; F03.90 Unspecified dementia, unspecified severity, without behavioral disturbance, psychotic disturbance, mood disturbance, and anxiety; Z72.811 Adult antisocial behavior; Z90.710 Acquired absence of both cervix and uterus; R01.1 Cardiac murmur, unspecified; B96.20 Unspecified Escherichia coli [E. coli] as the cause of diseases classified elsewhere; N32.81 Overactive bladder; R41.89 Other symptoms and signs involving cognitive functions and awareness; Z79.01 Long term (current) use of anticoagulants; Z88.8 Allergy status to other drugs, medicaments and biological substances
CPT/HCPCS: 81001; 87086; 87088; 87186; 97110-GO; 97110-GP; 97116-GP; 97161-GP; 97166-GO; 97530-GO; 97530-GP; 97535-GO; 97542-GO; A9270-GY; J8610

== ENCOUNTER 2019-11-28 06:51 | Emergency (ER) | payer MEDICARE, BC ==
[2019-11-28] MEDS ORDERED: Sodium Chloride 0.9% 10 ML Syringe FLUSH PRN (07:08)
[2019-11-28] MEDS ORDERED: HYDROmorphone 2 MG/ML SDV IM ONE (07:15)
[2019-11-28] MEDS ORDERED: Sodium Chloride 0.9% 1,000 ML IV SCH (07:15)
--- NOTE | 2019-11-28 07:38 | EDM.PDOC ---
ED HPI GENERAL MEDICAL PROBLEM - General Stated Complaint: left hip pain Time Seen by Provider: 11/28/19 07:30 Source of Information: Reports: Patient History Limitations: Reports: No Limitations - History of Present Illness INITIAL COMMENTS - FREE TEXT/NARRATIVE: Patient presented to the ED because lo left hip pain. Her found her outside their house leaning on her rt hip and can't get up. said that she probably fell and wasn't able to get up. No obvious physical injuries noted. She was also found to have a coffee ground emesis, she denies having any abdominal pain. Left Hip Pain Score (Numeric/FACES): 10 - Related Data Allergies Allergy/AdvReac Type Severity Reaction Status Date / Time bacitracin Allergy Rash Verified 11/28/19 07:45 [From Neosporin ([id number])] bacitracin zinc Allergy Rash Verified 11/28/19 07:45 [From Neosporin ([id number])] morphine Allergy Vomiting Verified 11/28/19 07:45 neomycin sulfate Allergy Rash Verified 11/28/19 07:45 [From Neosporin ([id number])] polymyxin B Allergy Rash Verified 11/28/19 07:45 [From Neosporin ([id number])] Home Meds: Home Meds atorvaSTATin [Lipitor] 10 mg PO DAILY 04/28/14 [History] cycloSPORINE [Restasis] 1 drop EYEBOTH BID 04/28/14 [History] DULoxetine [Cymbalta] 60 mg PO BID 05/12/14 [History] Memantine [Namenda] 10 mg PO BID 02/18/19 [History] EPINEPHrine [Epipen] 0.3 mg IM ASDIRECTED PRN 02/27/19 [History] Gabapentin [Neurontin] 900 mg PO TID 02/27/19 [History] Multivitamin [Daily Lamont] 1 tab PO DAILY 02/27/19 [History] Acetaminophen [Tylenol Extra Strength] 1,000 mg PO Q8H tablet 03/15/19 [Rx] Past Medical History HEENT History: Reports: Cataract Cardiovascular History: Reports: High Cholesterol 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 - Living Situation & Occupation Living situation: Reports: Occupation: Retired Review of Systems - Review of Systems Review Of Systems: See Below Constitutional: Reports: No Symptoms Eyes: Reports: No Symptoms Ears: Reports: No Symptoms, Previous Injury Mouth/Throat: Reports: No Symptoms Respiratory: Reports: No Symptoms Cardiovascular: Reports: No Symptoms GI/Abdominal: Reports: No Symptoms Genitourinary: Reports: No Symptoms Musculoskeletal: Reports: Other (hip pain) Skin: Reports: No Symptoms Neurological: Reports: No Symptoms ED EXAM, GENERAL - Physical Exam Exam: See Below Exam Limited By: No Limitations General Appearance: Alert, WD/WN, No Apparent Distress Eye Exam: Bilateral Eye: PERRL Ears: Normal External Exam, Normal Canal, Hearing Grossly Normal Nose: Normal Inspection, Normal Mucosa, No Blood, Nasal Tenderness Throat/Mouth: Normal Inspection, Normal Lips, Normal Teeth Head: Atraumatic, Normocephalic Neck: Normal Inspection, Supple, Non-Tender, Full Range of Motion Respiratory/Chest: No Respiratory Distress, Lungs Clear, Normal Breath Sounds, No Accessory Muscle Use Cardiovascular: Normal Peripheral Pulses, Regular Rate, Rhythm, No Edema, No Gallop, No JVD, No Murmur, No Rub GI/Abdominal: Normal Bowel Sounds, Soft, Non-Tender, No Organomegaly, No Distention, No Abnormal Bruit, No Mass Back Exam: Normal Inspection, Full Range of Motion Extremities: Normal Inspection, Other (tenderness and decrease ROM left hip) Course - Vital Signs Text/Narrative:: labs and xray-reviewed and verbalized full understanding NPO NS 1 L bolus dilaudid 1 mg IV x2 protonix 80 mg iv x1 Patient was informed that she will be transferred to [facility] and agreed, Case was discussed with Dr Van Last Recorded V/S: Last Vital Signs Temp 33.9 C L 11/28/19 06:55 Pulse 81 11/28/19 06:55 Resp 20 11/28/19 06:55 BP 137/81 11/28/19 06:55 Pulse Ox 88 L 11/28/19 06:55 - Orders/Labs/Meds Orders: Active Orders 24 hr Category Date Time Status EKG Documentation Completion [RC] ASDIRECTED Care 11/28/19 07:09 Active Chest 1V Frontal [CR] Stat Exams 11/28/19 07:47 Taken Hip Min 2V or 3V w Pelvis Lt [CR] Stat Exams 11/28/19 07:11 Taken Sodium Chloride 0.9% [Normal Saline] 1,000 ml Med 11/28/19 07:15 Active IV ASDIRECTED Sodium Chloride 0.9% [Saline Flush] Med 11/28/19 07:08 Active 10 ml FLUSH ASDIRECTED PRN Saline Lock Insert [OM.PC] Routine Oth 11/28/19 07:08 Ordered EKG 12 Lead [EK] Routine Ther 11/28/19 07:08 Ordered Medication Orders Sodium Chloride (Normal Saline) 1,000 mls @ 999 mls/hr IV ASDIRECTED [facility] Last Admin: 11/28/19 07:10 Dose: 999 mls/hr Sodium Chloride (Saline Flush) 10 ml FLUSH ASDIRECTED PRN PRN Reason: Keep Vein Open Last Admin: 11/28/19 07:10 Dose: 10 ml Labs: Laboratory Tests 11/28/19 11/28/19 11/28/19 Range/Units 07:20 07:20 07:20 WBC 15.6 H (4.5-12.0) X10-3/uL RBC 4.15 (3.23-5.20) x10(6)uL Hgb 13.4 (11.5-15.5) g/dL Hct 40.2 (30.0-51.3) % MCV 96.8 H (80-96) fL MCH 32.4 (27.7-33.6) pg MCHC 33.4 (32.2-35.4) g/dL RDW 12.1 (11.5-15.5) % Plt Count 222 (125-369) X10(3)uL MPV 8.4 (7.4-10.4) fL Add Manual Diff Yes Neutrophils % (Manual) 89 H (46-82) % Lymphocytes % (Manual) 8 L (13-37) % Monocytes % (Manual) 3 L (4-12) % PT 11.6 H (9.0-11.1) sec INR 1.22 (1.00-1.24) APTT 28.2 (24.4-33.2) SECONDS Sodium 142 (135-145) mmol/L Potassium 3.9 (3.5-5.3) mmol/L Chloride 104 (100-110) mmol/L Carbon Dioxide 24 (21-32) mmol/L BUN 13 (7-18) mg/dL Creatinine 0.8 (0.55-1.02) mg/dL Est Cr Clr Drug Dosing TNP Estimated GFR (MDRD) > 60 (>60) BUN/Creatinine Ratio 16.3 (9-20) Glucose 126 H (80-116) mg/dL Calcium 8.5 L (8.6-10.2) mg/dL Total Bilirubin 0.5 (0.1-1.3) mg/dL AST 21 (5-25) IU/L ALT 23 D (12-36) U/L Alkaline Phosphatase 108 (56-112) IU/L Troponin I (4.0-60.3) pg/mL Total Protein 7.1 (6.0-8.0) g/dL Albumin 3.7 (3.2-4.6) g/dL Globulin 3.4 g/dL Albumin/Globulin Ratio 1.1 11/28/19 Range/Units 07:20 WBC (4.5-12.0) X10-3/uL RBC (3.23-5.20) x10(6)uL Hgb (11.5-15.5) g/dL Hct (30.0-51.3) % MCV (80-96) fL MCH (27.7-33.6) pg MCHC (32.2-35.4) g/dL RDW (11.5-15.5) % Plt Count (125-369) X10(3)uL MPV (7.4-10.4) fL Add Manual Diff Neutrophils % (Manual) (46-82) % Lymphocytes % (Manual) (13-37) % Monocytes % (Manual) (4-12) % PT (9.0-11.1) sec INR (1.00-1.24) APTT (24.4-33.2) SECONDS Sodium (135-145) mmol/L Potassium (3.5-5.3) mmol/L Chloride (100-110) mmol/L Carbon Dioxide (21-32) mmol/L BUN (7-18) mg/dL Creatinine (0.55-1.02) mg/dL Est Cr Clr Drug Dosing Estimated GFR (MDRD) (>60) BUN/Creatinine Ratio (9-20) Glucose (80-116) mg/dL Calcium (8.6-10.2) mg/dL Total Bilirubin (0.1-1.3) mg/dL AST (5-25) IU/L ALT (12-36) U/L Alkaline Phosphatase (56-112) IU/L Troponin I 7.8 (4.0-60.3) pg/mL Total Protein (6.0-8.0) g/dL Albumin (3.2-4.6) g/dL Globulin g/dL Albumin/Globulin Ratio Meds: Medications Generic Name Dose Route Start Last Admin Trade Name Freq PRN Reason Stop Dose Admin Sodium Chloride 1,000 mls @ 999 mls/hr 11/28/19 07:15 11/28/19 07:10 Normal Saline IV 999 mls/hr ASDIRECTED [facility] Administration Sodium Chloride 10 ml 11/28/19 07:08 11/28/19 07:10 Saline Flush FLUSH 10 ml ASDIRECTED PRN Administration Keep Vein Open Discontinued Medications Generic Name Dose Route Start Last Admin Trade Name Freq PRN Reason Stop Dose Admin Hydromorphone HCl 1 mg 11/28/19 07:15 11/28/19 07:20 Dilaudid IM 11/28/19 07:16 1 mg ONETIME ONE Administration Hydromorphone HCl 2 mg 11/28/19 07:48 11/28/19 08:09 Dilaudid IVPUSH 11/28/19 07:49 2 mg ONETIME ONE Administration Pantoprazole Sodium 80 mg/ 100 mls @ 200 mls/hr 11/28/19 07:47 11/28/19 08:10 Sodium Chloride IV 11/28/19 08:16 200 mls/hr .BOLUS ONE Administration Departure - Departure Time of Disposition: 08:00 Disposition: DC/Tfer to Acute Hospital 02 Condition: Good Clinical Impression: Intertrochanteric fracture, hip, UGI bleed - Discharge Information Referrals: PCP,None [Primary Care Provider] - Sepsis Event Note - Focused Exam Vital Signs: Vital Signs Temp Pulse Resp BP Pulse Ox 11/28/19 06:55 33.9 C L 81 20 137/81 88 L Date Exam was Performed: 11/28/19 Time Exam was Performed: 08:25 - My Orders Last 24 Hours: My Active Orders 11/28/19 07:08 Sodium Chloride 0.9% [Saline Flush] 10 ml FLUSH ASDIRECTED PRN Saline Lock Insert [OM.PC] Routine EKG 12 Lead [EK] Routine 11/28/19 07:09 EKG Documentation Completion [RC] ASDIRECTED 11/28/19 07:11 Hip Min 2V or 3V w Pelvis Lt [CR] Stat 11/28/19 07:15 Sodium Chloride 0.9% [Normal Saline] 1,000 ml IV ASDIRECTED 11/28/19 07:47 Chest 1V Frontal [CR] Stat - Assessment/Plan Last 24 Hours: My Active Orders 11/28/19 07:08 Sodium Chloride 0.9% [Saline Flush] 10 ml FLUSH ASDIRECTED PRN Saline Lock Insert [OM.PC] Routine EKG 12 Lead [EK] Routine 11/28/19 07:09 EKG Documentation Completion [RC] ASDIRECTED 11/28/19 07:11 Hip Min 2V or 3V w Pelvis Lt [CR] Stat 11/28/19 07:15 Sodium Chloride 0.9% [Normal Saline] 1,000 ml IV ASDIRECTED 11/28/19 07:47 Chest 1V Frontal [CR] Stat
[2019-11-28] MEDS ORDERED: Pantoprazole 80 MG in Sodium Chloride 0.9% 100 ML IV ONE (07:47)
[2019-11-28] MEDS ORDERED: HYDROmorphone 2 MG/ML SDV IVPUSH ONE (07:48)
--- NOTE | 2019-11-28 16:13 | CR ---
INDICATION: Fall. LEFT HIP AND PELVIS: Frontal view of the pelvis with 2 AP views and a lateral view of the left hip revealed a subcapital femoral neck fracture with cranial offset of the distal fracture fragment and lateral angulation at the fracture site. Mild degenerative changes are noted at the hip joints bilaterally with some very minimal loss of craniolateral joint space on the left. Previous hip pinning is noted on the right with [address] Sacroiliac joints showed some minimal degenerative change, but were otherwise unremarkable. IMPRESSION: 1. Left subcapital neck fracture with deformity. 2. Previous healed subcapital femoral neck fracture on the right. MTDD
--- NOTE | 2019-11-28 16:15 | CR ---
INDICATION: Fall. CHEST: An AP portable supine view of the chest 11/28/19 was compared with 02/18 and revealed what appears to be a localized eventration anteriorly at the right lung base with no evidence of definite active infiltrate or effusion or contusion. Severe degenerative changes are noted at the glenohumeral joint, apparently these are post-traumatic in nature however. The heart did not appear grossly enlarged. The aorta is slightly tortuous with calcification in the arch minimally. IMPRESSION: No definite acute process. MTDD
== END 2019-11-28 08:40 ==
LOC: FB.ED 06:51
DX: S72.012A Unspecified intracapsular fracture of left femur, initial encounter for closed fracture (principal); K92.2 Gastrointestinal hemorrhage, unspecified; Z88.1 Allergy status to other antibiotic agents; Z88.5 Allergy status to narcotic agent; E78.00 Pure hypercholesterolemia, unspecified; F03.90 Unspecified dementia, unspecified severity, without behavioral disturbance, psychotic disturbance, mood disturbance, and anxiety; F41.9 Anxiety disorder, unspecified; Z79.899 Other long term (current) drug therapy; W19.XXXA Unspecified fall, initial encounter
CPT/HCPCS: 36415; 71045; 73502-LT; 80053; 82271; 84484; 85025; 85610; 85730; 93005; 96361; 96365; 96372; 96375; 99285-25; C9113; J1170; J7030; J7050

== ENCOUNTER 2019-12-03 11:00 | Inpatient (IN) | payer MEDICARE, BC ==
[2019-12-03] MEDS ORDERED: Ondansetron 4 MG Tab.DIS PO PRN (15:21)
[2019-12-03] MEDS ORDERED: Polyethylene Glycol 3350 Powder 17 GM Packet PO PRN (15:23)
[2019-12-03] MEDS ORDERED: Bisacodyl 5 MG Tab PO PRN (15:24)
[2019-12-03] MEDS ORDERED: Docusate Sodium 100 MG Cap PO PRN (15:24)
[2019-12-03] MEDS: Acetaminophen/HYDROcodone 325-5 MG Tab PO PRN (16:06)
--- NOTE | 2019-12-03 16:14 | PCM.HP.2 ---
H&P History of Present Illness - General Date of Service: 12/03/19 Admit Problem/Dx: Admission Diagnosis/Problem Admission Diagnosis/Problem Rehabilitation therapy Source of Information: Patient, Old Records, Provider - History of Present Illness Initial Comments - Free Text/Narative: Anjelica sustained a left femur fracture on November 26, had fallen at home on patio after her went to bed and was found the next morning, underwent surgical repair on November 28. She also had a UTI E. Coli that was treated with 3 days of antibiotics. She has had some urinary retention since Andino was discontinued and has had straight catheterization if she was retaining otherwise has been incontinent. She has been switched to oral pain medications from IV, has [place] [facility] [employer] card but has not been taking since she was hospitalized. Denies any fevers, chills, sore throat, cough, shortness of breath, chest pain, nausea, vomiting, diarrhea. Scabbed area on right calf. 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 Covid negative prior to arrival. Left Leg Pain Score (Numeric/FACES): 5 - Related Data Allergies/Adverse Reactions: Allergies Allergy/AdvReac Type Severity Reaction Status Date / Time bacitracin Allergy Rash Verified 12/03/19 15:44 [From Neosporin ([id number])] bacitracin zinc Allergy Rash Verified 12/03/19 15:44 [From Neosporin ([id number])] morphine Allergy Vomiting Verified 12/03/19 15:44 neomycin sulfate Allergy Rash Verified 12/03/19 15:44 [From Neosporin ([id number])] polymyxin B Allergy Rash Verified 12/03/19 15:44 [From Neosporin ([id number])] Home Medications: Home Meds cycloSPORINE [Restasis] 1 drop EYEBOTH BID 04/28/14 [History] DULoxetine [Cymbalta] 60 mg PO BID 05/12/14 [History] Memantine [Namenda] 10 mg PO BID 02/18/19 [History] EPINEPHrine [Epipen] 0.3 mg IM ASDIRECTED PRN 02/27/19 [History] Gabapentin [Neurontin] 900 mg PO TID 02/27/19 [History] Multivitamin [Daily Lamont] 1 tab PO DAILY 02/27/19 [History] Acetaminophen [Tylenol] 650 mg PO TID 12/03/19 [History] Betamethasone/Propylene Glyc [Betamethasone Dp Aug 0.05% Oin] 1 applic TOP BID PRN 12/03/19 [History] Calcium Carbonate/Vitamin D3 [Calcium 500-Vit D3 200 Tablet] 1 tab PO BID [History] Cholecalciferol (Vitamin D3) [Vitamin D3] 1 cap PO DAILY 12/03/19 [History] Enoxaparin [Lovenox] 40 mg SQ Q24H 12/03/19 [History] Folic Acid 1 mg PO DAILY 12/03/19 [History] Hydrocodone/Acetaminophen [Hydrocodon-Acetaminophen 5-325] 1 tab PO Q6H PRN [History] Lutein 10 mg PO DAILY 12/03/19 [History] Melatonin 6 mg PO BEDTIME 12/03/19 [History] Mirtazapine 15 mg PO BEDTIME 12/03/19 [History] Ondansetron [Zofran ODT] 4 mg PO Q6H PRN 12/03/19 [History] Pantoprazole [ProTONIX] 40 mg PO BID 12/03/19 [History] Propylene Glycol/PEG 400/Pf [Systane 0.3-0.4% Eye Drop] 1 drop EYEBOTH BID 12/02 [History] atorvaSTATin [Lipitor] 10 mg PO DAILY 12/03/19 [History] Past Medical History HEENT History: Reports: Cataract, Glaucoma Cardiovascular History: Reports: High Cholesterol Gastrointestinal History: Reports: Colon Polyp Genitourinary History: Reports: Urinary Incontinence, UTI, Recurrent RESIDENTIAL TECH History: Reports: Musculoskeletal History: Reports: Arthritis, Back Pain, Chronic, Neck Pain, Chronic, Osteoporosis Other Musculoskeletal History: FOOT PAIN, wrist pain Neurological History: Reports: Neuropathy, Peripheral 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, Anxiety, Dementia, Depression, Other (See Below) Other Psychiatric History: insomnia Hematologic History: Reports: Anemia - Infectious Disease History Infectious Disease History: Reports: Chicken Pox, Measles, Mumps - Past Surgical History HEENT Surgical History: Reports: None Cardiovascular Surgical History: Reports: None GI Surgical History: Reports: Colonoscopy Female Surgical History: Reports: Hysterectomy Endocrine Surgical History: Reports: None Musculoskeletal Surgical History: Reports: Carpal Tunnel, Hip Replacement, ORIF (left hip), Shoulder Surgery Social & Family History - Family History Family Medical History: Unobtainable - Tobacco Use Smoking Status *Q: Former Smoker Packs/Tins Daily: 1.5 Used Tobacco, but Quit: Yes Month/Year Tobacco Last Used: 1980 Second Hand Smoke Exposure: No - Caffeine Use Caffeine Use: Reports: Coffee, Tea Other Caffeine Use: 2 cans a day. - Alcohol Use Days Per Week of Alcohol Use: 3 Number of Drinks Per Day: 2 Total Drinks Per Week: 6 - Recreational Drug Use Recreational Drug Use: No - Living Situation & Occupation Living situation: Reports: Occupation: Retired H&P Review of Systems - Review of Systems: Review Of Systems: Comprehensive ROS is negative, except as noted in HPI. Exam - Exam Exam: See Below - Vital Signs Vital Signs: Last Vital Signs Temp 98.0 F 12/03/19 13:10 Pulse 89 12/03/19 13:10 Resp 18 12/03/19 13:10 BP 145/83 H 12/03/19 13:10 Pulse Ox 95 12/03/19 13:10 Weight: 149 lb 6.4 oz - Exam General: Alert, Oriented (person, place, pleasantly confused), Cooperative. No : Mild Distress HEENT: PERRLA, Conjunctiva Clear, EOMI, Hearing Intact, Mucosa Moist & [place], TMs Clear Neck: Supple, Trachea Midline. No: Lymphadenopathy Lungs: Clear to Auscultation, Normal Respiratory Effort Cardiovascular: Regular Rate, Regular Rhythm GI/Abdominal Exam: Normal Bowel Sounds, Soft, No Distention, Tender (suprapubic area(states she needs to go to the bathroom)) Extremities: Pedal Edema (trace BLE) Peripheral Pulses: 2+: Radial (L), Radial (R), Posterior Tibial (L), Posterior Tibial (R), Dorsalis Pedis (L), Dorsalis Pedis (R) Skin: Incision (left hip, Mepilex dressing in place, scab on right lateral calf. Numerous actinic parakeratosis scattered throughout.) Neuro Extensive - Mental Status: Normal Mood/Affect, Disorientation to Time, Nl Response to Commands Sepsis Event Note - Evaluation Sepsis Screening Result: No Definite Risk - Focused Exam Vital Signs: Vital Signs Temp Pulse Resp BP Pulse Ox 12/03/19 13:10 98.0 F 89 18 145/83 H 95 Date Exam was Performed: 12/03/19 Time Exam was Performed: 16:08 - Problem List (1) S/p left hip fracture SNOMED Code(s): 594050429 ICD Code: Z87.81 - PERSONAL HISTORY OF (HEALED) TRAUMATIC FRACTURE Status: Acute Current Visit: Yes Onset Date: ~11/29/19 Problem Details: Surgery 05/2020 (2) Neurocognitive deficits SNOMED Code(s): 916846683 ICD Code: R29.818 - OTHER SYMPTOMS AND SIGNS INVOLVING THE NERVOUS SYSTEM; R41.89 - OTH SYMPTOMS AND SIGNS W COGNITIVE FUNCTIONS AND AWARENESS Status: Chronic Current Visit: No (3) Overactive bladder SNOMED Code(s): 953412658 ICD Code: N32.81 - OVERACTIVE BLADDER Status: Chronic Current Visit: No (4) Anxiety SNOMED Code(s): 18074897 ICD Code: F41.9 - ANXIETY DISORDER, UNSPECIFIED Status: Chronic Current Visit: No Problem List Initiated/Reviewed/Updated: Yes Orders Last 24hrs: Active Orders 24 hr Category Date Time Status Patient Status [ADT] Routine ADT 12/03/19 13:48 Active Antiembolic Devices [RC] .Routine Care 12/03/19 13:47 Active Andino Catheter Insertion [Insert Urinary Catheter] [OM. Care 12/03/19 14:00 Ordered PC] Q24H Height and Weight [RC] WEEKLY Care 12/03/19 13:48 Active Oxygen Therapy [RC] PRN Care 12/03/19 13:48 Active Up With Assistance [RC] ASDIRECTED Care 12/03/19 13:48 Active Urinary Catheter Assessment [RC] QSHIFT Care 12/03/19 13:57 Active VTE/DVT Education [RC] Per Unit Routine Care 12/03/19 13:48 Active Vital Signs [RC] 08 Care 12/03/19 13:48 Active Wound Care [RC] ONETIME Care 12/06/19 09:00 Active OT Evaluation and Treatment [CONS] Routine Cons 12/03/19 13:48 Active PT Evaluation and Treatment [CONS] Routine Cons 12/03/19 13:48 Active Acetaminophen [Tylenol] Med 12/03/19 16:00 Active 650 mg PO TID Acetaminophen/HYDROcodone [Sharon 325-5 MG] Med 12/03/19 15:21 Active 1 tab PO Q6H PRN DULoxetine [Cymbalta] Med 12/03/19 21:00 Active 60 mg PO BID Docusate Sodium [Colace] Med 12/03/19 15:24 Active 100 mg PO DAILY PRN Enoxaparin [Lovenox] Med 12/03/19 21:00 Active 40 mg SUBCUT Q24H Gabapentin [Neurontin] Med 12/03/19 21:00 Active 900 mg PO TID Melatonin Med 12/03/19 21:00 Ordered 6 mg PO BEDTIME Memantine [Namenda] Med 12/03/19 21:00 Ordered 10 mg PO BID Mirtazapine [Remeron] Med 12/03/19 21:00 Ordered 15 mg PO BEDTIME Multivitamins [Tab-A-Lamont] Med 12/04/19 09:00 Ordered 1 tab PO DAILY Ondansetron [Zofran ODT] Med 12/03/19 15:21 Ordered 4 mg PO Q6H PRN Pantoprazole [ProTONIX] Med 12/03/19 21:00 Ordered 40 mg PO BID Propylene Glycol/PEG 400/Pf [Systane 0.3-0.4% Eye Drop] Med 12/03/19 21:00 Ordered 1 drop EYEBOTH BID atorvaSTATin [Lipitor] Med 12/04/19 09:00 Active 10 mg PO DAILY bisacodyL [Dulcolax] Med 12/03/19 15:24 Active 5 mg PO DAILY PRN cycloSPORINE [Restasis] Med 12/03/19 21:00 Ordered DOSE each EYEBOTH BID polyethylene glycoL 3350 [MiraLAX] Med 12/03/19 15:23 Ordered 17 gm PO DAILY PRN Antiembolic Hose [OM.PC] Routine Oth 12/03/19 13:47 Ordered Resuscitation Status Routine Resus Stat 12/03/19 13:48 Ordered Medication Orders Acetaminophen (Tylenol) 650 mg PO TID [facility] Hydrocodone Bitart/Acetaminophen (Sharon 325-5 Mg) 1 tab PO Q6H PRN PRN Reason: Pain Last Admin: 12/03/19 16:06 Dose: 1 tab Atorvastatin Calcium (Lipitor) 10 mg PO DAILY [facility] Bisacodyl (Dulcolax) 5 mg PO DAILY PRN PRN Reason: Constipation Cyclosporine (Restasis) each EYEBOTH BID [facility] Docusate Sodium (Colace) 100 mg PO DAILY PRN PRN Reason: Constipation Duloxetine HCl (Cymbalta) 60 mg PO BID [facility] Enoxaparin Sodium (Lovenox) 40 mg SUBCUT Q24H [facility] Gabapentin (Neurontin) 900 mg PO TID [facility] Melatonin (Melatonin) 6 mg PO BEDTIME [facility] Memantine (Namenda) 10 mg PO BID [facility] Mirtazapine (Remeron) 15 mg PO BEDTIME [facility] Multivitamins/Minerals/Vitamin C (Tab-A-Lamont) 1 tab PO DAILY [facility] Non-Formulary Medication (Propylene Glycol/Peg 400/Pf [Systane 0.3-0.4% Eye Drop ]) 1 drop EYEBOTH BID [facility] Ondansetron HCl (Zofran Odt) 4 mg PO Q6H PRN PRN Reason: Nausea Pantoprazole Sodium (Protonix) 40 mg PO BID [facility] Polyethylene Glycol (Miralax) 17 gm PO DAILY PRN PRN Reason: Constipation Assessment/Plan Comment:: 1. Admit to swing bed for rehab services. 2. Resume pain regiment from [place]. Resume home medications. 3. Remove Mepilex dressing on December 05. 4. Straight cath prn urinary retention. Bedside commode if needed. 5. Regular diet. 6. DVT prophylaxis: Lovenox 40 mg sq daily x 28 days. 7. GI prophylaxis: Pantoprazole 40 mg daily. 8. CODE STATUS: DNR/DNI per living will. - Mortality Measure Prognosis:: Good
[2019-12-03] MEDS: Acetaminophen 325 MG Tab PO SCH ×2 (16:43→20:21)
[2019-12-03] MEDS: Enoxaparin 40 MG/0.4 ML Syringe SUBCUT SCH (20:16)
[2019-12-03] MEDS: DULoxetine 60 MG Cap PO SCH (20:16)
[2019-12-03] MEDS: Melatonin 3 MG Tab PO SCH (20:18)
[2019-12-03] MEDS: Gabapentin 300 MG Cap PO SCH (20:19)
[2019-12-03] MEDS: Pantoprazole 40 MG Tab.CR PO SCH (20:20)
[2019-12-03] MEDS: Mirtazapine 15 MG Tab PO SCH (20:20)
[2019-12-03] MEDS: cycloSPORINE Ophth Drops U/D Box of 30 EYEBOTH SCH (20:20)
[2019-12-03] MEDS: Memantine 10 MG Tab PO SCH (20:22)
[2019-12-03] MEDS: PEG 400/Propylene Glycol Ophth Soln 15 ML Bottle EYEBOTH SCH (20:23)
[2019-12-04] MEDS: Acetaminophen/HYDROcodone 325-5 MG Tab PO PRN (00:52)
[2019-12-04] MEDS: Acetaminophen 325 MG Tab PO SCH ×3 (08:22→20:37)
[2019-12-04] MEDS: Memantine 10 MG Tab PO SCH ×2 (08:22→20:39)
[2019-12-04] MEDS: Pantoprazole 40 MG Tab.CR PO SCH ×2 (08:22→20:39)
[2019-12-04] MEDS: cycloSPORINE Ophth Drops U/D Box of 30 EYEBOTH SCH ×2 (08:23→20:36)
[2019-12-04] MEDS: atorvaSTATin 10 MG Tab PO SCH (08:23)
[2019-12-04] MEDS: Multivitamin Tab PO SCH (08:23)
[2019-12-04] MEDS: Gabapentin 300 MG Cap PO SCH ×3 (08:27→20:34)
[2019-12-04] MEDS: PEG 400/Propylene Glycol Ophth Soln 15 ML Bottle EYEBOTH SCH ×2 (08:28→20:36)
[2019-12-04] MEDS: DULoxetine 60 MG Cap PO SCH ×2 (08:30→20:33)
[2019-12-04] MEDS: Enoxaparin 40 MG/0.4 ML Syringe SUBCUT SCH (20:33)
[2019-12-04] MEDS: Melatonin 3 MG Tab PO SCH (20:34)
[2019-12-04] MEDS: Mirtazapine 15 MG Tab PO SCH (20:35)
[2019-12-05] MEDS: Memantine 10 MG Tab PO SCH ×2 (09:45→20:14)
[2019-12-05] MEDS: DULoxetine 60 MG Cap PO SCH ×2 (09:45→20:13)
[2019-12-05] MEDS: atorvaSTATin 10 MG Tab PO SCH (09:45)
[2019-12-05] MEDS: Pantoprazole 40 MG Tab.CR PO SCH ×2 (09:45→20:14)
[2019-12-05] MEDS: cycloSPORINE Ophth Drops U/D Box of 30 EYEBOTH SCH ×2 (09:45→20:14)
[2019-12-05] MEDS: Acetaminophen 325 MG Tab PO SCH ×3 (09:46→20:15)
[2019-12-05] MEDS: Multivitamin Tab PO SCH (09:46)
[2019-12-05] MEDS: PEG 400/Propylene Glycol Ophth Soln 15 ML Bottle EYEBOTH SCH ×2 (09:48→20:14)
[2019-12-05] MEDS: Gabapentin 300 MG Cap PO SCH ×3 (09:54→20:12)
[2019-12-05] MEDS: Acetaminophen/HYDROcodone 325-5 MG Tab PO PRN ×2 (12:59→19:06)
[2019-12-05] MEDS: Enoxaparin 40 MG/0.4 ML Syringe SUBCUT SCH (20:13)
[2019-12-05] MEDS: Melatonin 3 MG Tab PO SCH (20:13)
[2019-12-05] MEDS: Mirtazapine 15 MG Tab PO SCH (20:14)
[2019-12-06] MEDS: PEG 400/Propylene Glycol Ophth Soln 15 ML Bottle EYEBOTH SCH ×2 (08:26→21:30)
[2019-12-06] MEDS: Multivitamin Tab PO SCH (08:27)
[2019-12-06] MEDS: atorvaSTATin 10 MG Tab PO SCH (08:27)
[2019-12-06] MEDS: Acetaminophen 325 MG Tab PO SCH ×3 (08:27→21:27)
[2019-12-06] MEDS: Memantine 10 MG Tab PO SCH ×2 (08:27→21:27)
[2019-12-06] MEDS: Gabapentin 300 MG Cap PO SCH ×3 (08:27→21:36)
[2019-12-06] MEDS: Pantoprazole 40 MG Tab.CR PO SCH ×2 (08:27→21:27)
[2019-12-06] MEDS: DULoxetine 60 MG Cap PO SCH ×2 (08:27→21:26)
[2019-12-06] MEDS: cycloSPORINE Ophth Drops U/D Box of 30 EYEBOTH SCH ×2 (08:28→21:28)
[2019-12-06] MEDS: Acetaminophen/HYDROcodone 325-5 MG Tab PO PRN ×2 (09:45→20:16)
--- NOTE | 2019-12-06 12:43 | PN ---
DATE SEEN: 12/06/2019 SUBJECTIVE: Anjelica Hogue is a delightful 83-year-old female, seen today for general review. Swing bed stay for left hip fracture. Fractured on the , operated on the , swing bed plan is in place. UTI was treated during her acute care stay. Complains of moderate pain. MEDICATIONS: On board include: 1. Tylenol 650 p.o. t.i.d. scheduled. 2. Gabapentin 900 mg t.i.d. 3. Hydrocodone 5/325 q.6 hours p.r.n. for pain. Appears to be doing well. OBJECTIVE: VITAL SIGNS: 36.6, 145/74, 18, 98% on room air. GENERAL: In good spirits. Cooperative. Conversant. NECK: Benign. Thyroid small. CHEST: Clear in all lung oropeza. HEART: No ectopy or murmur. ABDOMEN: Benign. Surgical wound healing well. ASSESSMENT: 1. Left hip fracture. 2. Urinary tract infection. PLAN: We will reduce Neurontin to 300 mg t.i.d. We will check urine for UTI. Complementary care and well being. /[id number] NICK/LOUIE
[2019-12-06] MEDS: Enoxaparin 40 MG/0.4 ML Syringe SUBCUT SCH (21:26)
[2019-12-06] MEDS: Mirtazapine 15 MG Tab PO SCH (21:30)
[2019-12-07] MEDS: Acetaminophen/HYDROcodone 325-5 MG Tab PO PRN ×2 (03:49→17:30)
[2019-12-07] MEDS: atorvaSTATin 10 MG Tab PO SCH (08:37)
[2019-12-07] MEDS: DULoxetine 60 MG Cap PO SCH ×2 (08:37→20:59)
[2019-12-07] MEDS: Pantoprazole 40 MG Tab.CR PO SCH ×2 (08:38→21:00)
[2019-12-07] MEDS: Memantine 10 MG Tab PO SCH ×2 (08:38→21:00)
[2019-12-07] MEDS: cycloSPORINE Ophth Drops U/D Box of 30 EYEBOTH SCH ×2 (08:39→21:01)
[2019-12-07] MEDS: Multivitamin Tab PO SCH (08:40)
[2019-12-07] MEDS: PEG 400/Propylene Glycol Ophth Soln 15 ML Bottle EYEBOTH SCH ×2 (08:40→20:59)
[2019-12-07] MEDS: Acetaminophen 325 MG Tab PO SCH ×3 (08:41→21:00)
[2019-12-07] MEDS: Gabapentin 300 MG Cap PO SCH ×3 (08:49→21:00)
[2019-12-07] MEDS: hydrOXYzine HCl 25 MG Tab PO SCH ×3 (08:49→21:06)
[2019-12-07] MEDS: Mirtazapine 15 MG Tab PO SCH (21:00)
[2019-12-07] MEDS: Enoxaparin 40 MG/0.4 ML Syringe SUBCUT SCH (21:03)
[2019-12-08] MEDS: Acetaminophen/HYDROcodone 325-5 MG Tab PO PRN ×2 (05:51→17:51)
[2019-12-08] MEDS: DULoxetine 60 MG Cap PO SCH ×2 (08:30→20:05)
[2019-12-08] MEDS: Pantoprazole 40 MG Tab.CR PO SCH ×2 (08:31→20:05)
[2019-12-08] MEDS: atorvaSTATin 10 MG Tab PO SCH (08:31)
[2019-12-08] MEDS: Memantine 10 MG Tab PO SCH ×2 (08:31→20:05)
[2019-12-08] MEDS: PEG 400/Propylene Glycol Ophth Soln 15 ML Bottle EYEBOTH SCH ×2 (08:32→20:06)
[2019-12-08] MEDS: cycloSPORINE Ophth Drops U/D Box of 30 EYEBOTH SCH ×2 (08:32→20:07)
[2019-12-08] MEDS: Multivitamin Tab PO SCH (08:33)
[2019-12-08] MEDS: Acetaminophen 325 MG Tab PO SCH ×3 (08:33→20:06)
[2019-12-08] MEDS: Gabapentin 300 MG Cap PO SCH ×3 (08:39→20:05)
[2019-12-08] MEDS: hydrOXYzine HCl 25 MG Tab PO SCH ×3 (08:39→20:05)
--- NOTE | 2019-12-08 11:24 | PN ---
DATE SEEN: 12/07/2019 SUBJECTIVE: Anjelica Hogue is an 83-year-old female, admitted in swing bed. Had a hip fracture. Resulting in need for swing bed stay. She was admitted on 12/03/2019. There have been no interval problems or concerns. Pain appears to be controlled. PT is happy of the outcome. OBJECTIVE: GENERAL: Antalgic gait but appropriate. NECK: Benign. Thyroid small. CHEST: Clear in all lung oropeza. HEART: No ectopy or murmur. ABDOMEN: Benign. ASSESSMENT: Hip fracture rehabilitation. PLAN: Medications, care and treatment in place. /[id number] NICK/LOUIE
--- NOTE | 2019-12-08 11:34 | PN ---
DATE SEEN: 12/08/2019 SUBJECTIVE: Anjelica Hogue is an 83-year-old female, in rehab. Had a complicated hip fracture. Doing well with therapy. Ambulation is improving, dressing skills are improving. Pain appears to be controlled. OBJECTIVE: Incisions looks well without conflict. ASSESSMENT: Hip fracture with surgical repair. PLAN: Rehab in place, pain medications in place, comfort measures, and good stools. /[id number] /MANOJL
[2019-12-08] MEDS: Enoxaparin 40 MG/0.4 ML Syringe SUBCUT SCH (20:05)
[2019-12-08] MEDS: Mirtazapine 15 MG Tab PO SCH (20:06)
[2019-12-09] MEDS: Acetaminophen/HYDROcodone 325-5 MG Tab PO PRN ×2 (07:05→14:33)
[2019-12-09] MEDS: Memantine 10 MG Tab PO SCH ×2 (08:17→20:31)
[2019-12-09] MEDS: DULoxetine 60 MG Cap PO SCH ×2 (08:17→20:31)
[2019-12-09] MEDS: atorvaSTATin 10 MG Tab PO SCH (08:17)
[2019-12-09] MEDS: Acetaminophen 325 MG Tab PO SCH ×3 (08:17→20:30)
[2019-12-09] MEDS: Pantoprazole 40 MG Tab.CR PO SCH ×2 (08:17→20:33)
[2019-12-09] MEDS: PEG 400/Propylene Glycol Ophth Soln 15 ML Bottle EYEBOTH SCH ×2 (08:18→20:30)
[2019-12-09] MEDS: Multivitamin Tab PO SCH (08:18)
[2019-12-09] MEDS: cycloSPORINE Ophth Drops U/D Box of 30 EYEBOTH SCH ×2 (08:19→20:31)
--- NOTE | 2019-12-09 09:45 | CR ---
INDICATION: Followup wrist fractures. RIGHT WRIST: Three views of the right wrist were obtained 12/08/19 and compared with 10/15/19 and 09/10/19. No change in position or alignment of the fracture fragments is noted. Dorsal angulation of the radial joint surface is noted at approximately 23 degrees which is greater than the usual allowable 15 degrees. Evidence of healing is noted at the radial fracture site of the metaphysis with stable position and alignment of the fracture fragments. Osteoarthritis is again noted at the carpus and 1st metacarpocarpal joint. Osteoarthritis is also noted at the 1st, 2nd, and 3rd metacarpophalangeal joints. Demineralization is suggested compatible with osteoporosis - correlate clinically. MTDD
--- NOTE | 2019-12-09 10:21 | PN ---
DATE SEEN: 12/09/2019 SUBJECTIVE: Anjelica Hogue is an 83-year-old female in rehab for left hip fracture. Doing well. Pain is reasonably well controlled. Analgesics required. Has a splint on her right wrist, origin uncertain. Had a remote fracture about 3 months ago. Radiographs performed revealed good interval healing, callus formation with some deformity. PT will be involved. Reviewed her medications, all appear to be appropriate. No recent laboratory studies. In good health otherwise. OBJECTIVE: VITAL SIGNS: 37.2, 156/81, 62, 95%. GENERAL: Appears comfortable. NECK: Benign. Thyroid small. CHEST: On auscultation, clear in all lung oropeza. HEART: No ectopy or murmur. ABDOMEN: Benign. ASSESSMENT: 1. Hip fracture, healing. 2. Right wrist fracture, remote. PLAN: PT, OT referral. Hand and wrist. Complementary care and well being. /[id number] NICK/LOUIE
[2019-12-09] MEDS: hydrOXYzine HCl 25 MG Tab PO SCH ×3 (10:59→20:31)
[2019-12-09] MEDS: Gabapentin 300 MG Cap PO SCH ×3 (10:59→20:31)
[2019-12-09] MEDS: Enoxaparin 40 MG/0.4 ML Syringe SUBCUT SCH (20:31)
[2019-12-09] MEDS: Mirtazapine 15 MG Tab PO SCH (20:33)
[2019-12-10] MEDS: Acetaminophen 325 MG Tab PO SCH ×3 (08:04→20:07)
[2019-12-10] MEDS: hydrOXYzine HCl 25 MG Tab PO SCH ×3 (08:04→20:05)
[2019-12-10] MEDS: Multivitamin Tab PO SCH (08:05)
[2019-12-10] MEDS: Memantine 10 MG Tab PO SCH ×2 (08:05→20:06)
[2019-12-10] MEDS: DULoxetine 60 MG Cap PO SCH ×2 (08:05→20:05)
[2019-12-10] MEDS: PEG 400/Propylene Glycol Ophth Soln 15 ML Bottle EYEBOTH SCH ×2 (08:05→20:04)
[2019-12-10] MEDS: Pantoprazole 40 MG Tab.CR PO SCH ×2 (08:05→20:06)
[2019-12-10] MEDS: atorvaSTATin 10 MG Tab PO SCH (08:05)
[2019-12-10] MEDS: cycloSPORINE Ophth Drops U/D Box of 30 EYEBOTH SCH ×2 (08:06→20:04)
[2019-12-10] MEDS: Gabapentin 300 MG Cap PO SCH ×3 (08:09→20:06)
--- NOTE | 2019-12-10 10:27 | PN ---
DATE SEEN: 12/10/2019 REASON FOR VISIT: Rehab for left hip fracture. SUBJECTIVE: Anjelica Hogue is an 83-year-old, female, in swing bed. Had left hip repair 11/28/2017. Doing well. No recent laboratory studies. Urinalysis performed. Hemoglobin and hematocrit to be performed today. OBJECTIVE: VITAL SIGNS: 36.7, 88, 154/79, 18, and 93. GENERAL: Appears comfortable. NECK: Benign. Thyroid small. CHEST: Clear in all lung oropeza. HEART: No ectopy or murmur. ABDOMEN: Benign. Surgical wound intact, there was a surgical wire present in the wound subcutaneously. ASSESSMENT: Postoperative care, rehab left hip fracture. PLAN: Wound surveillance. Probably leave it in for 14 days which would be the , complementary care and well being. Pain controlled. /[id number] /LOUIE
[2019-12-10] MEDS: Enoxaparin 40 MG/0.4 ML Syringe SUBCUT SCH (20:04)
[2019-12-10] MEDS: Mirtazapine 15 MG Tab PO SCH (20:06)
[2019-12-10] MEDS: Acetaminophen/HYDROcodone 325-5 MG Tab PO PRN (21:41)
[2019-12-11] MEDS: Acetaminophen/HYDROcodone 325-5 MG Tab PO PRN ×2 (04:26→22:37)
[2019-12-11] MEDS: DULoxetine 60 MG Cap PO SCH ×2 (08:49→20:40)
[2019-12-11] MEDS: hydrOXYzine HCl 25 MG Tab PO SCH ×3 (08:49→20:40)
[2019-12-11] MEDS: Memantine 10 MG Tab PO SCH ×2 (08:49→20:40)
[2019-12-11] MEDS: cycloSPORINE Ophth Drops U/D Box of 30 EYEBOTH SCH ×2 (08:50→20:40)
[2019-12-11] MEDS: atorvaSTATin 10 MG Tab PO SCH (08:50)
[2019-12-11] MEDS: Pantoprazole 40 MG Tab.CR PO SCH ×2 (08:50→20:40)
[2019-12-11] MEDS: PEG 400/Propylene Glycol Ophth Soln 15 ML Bottle EYEBOTH SCH ×2 (08:51→20:40)
[2019-12-11] MEDS: Acetaminophen 325 MG Tab PO SCH ×3 (08:52→20:40)
[2019-12-11] MEDS: Multivitamin Tab PO SCH (08:52)
[2019-12-11] MEDS: Gabapentin 300 MG Cap PO SCH ×3 (09:00→20:40)
--- NOTE | 2019-12-11 09:16 | PN ---
DATE SEEN: 12/11/2019 Anjelica Hutchinson is an 83-year-old female from [place], in for post left hip fracture rehab. Some issues of mentation and commitment to being focused are creating concerns upon discharge. Most recent event, she incurred falling out on the patio, unable to achieve contact with her during the sleeping hours, neighbors heard her calling out, and care was provided. Home care services under consideration. Otherwise, doing well. Therapy is going well. EXAM: CHEST: Clear. HEART: Regular. ABDOMEN: Benign. Wound healing well, wiry subcuticular suture in place. ASSESSMENT: Postoperative care, left hip fracture. PLAN: Treatment and care on board. /[id number] NICK/LOUIE BEJARANO
[2019-12-11] MEDS: Enoxaparin 40 MG/0.4 ML Syringe SUBCUT SCH (20:40)
[2019-12-11] MEDS: Mirtazapine 15 MG Tab PO SCH (20:40)
[2019-12-12] MEDS: Gabapentin 300 MG Cap PO SCH ×3 (09:03→20:24)
[2019-12-12] MEDS: Acetaminophen/HYDROcodone 325-5 MG Tab PO PRN ×3 (09:03→23:00)
[2019-12-12] MEDS: DULoxetine 60 MG Cap PO SCH ×2 (09:04→20:24)
[2019-12-12] MEDS: Memantine 10 MG Tab PO SCH ×2 (09:04→20:24)
[2019-12-12] MEDS: hydrOXYzine HCl 25 MG Tab PO SCH ×3 (09:04→20:24)
[2019-12-12] MEDS: Pantoprazole 40 MG Tab.CR PO SCH ×2 (09:05→20:24)
[2019-12-12] MEDS: Acetaminophen 325 MG Tab PO SCH ×3 (09:05→20:24)
[2019-12-12] MEDS: cycloSPORINE Ophth Drops U/D Box of 30 EYEBOTH SCH ×2 (09:06→20:25)
[2019-12-12] MEDS: PEG 400/Propylene Glycol Ophth Soln 15 ML Bottle EYEBOTH SCH ×2 (09:06→20:25)
[2019-12-12] MEDS: atorvaSTATin 10 MG Tab PO SCH (09:06)
[2019-12-12] MEDS: Multivitamin Tab PO SCH (09:06)
--- NOTE | 2019-12-12 17:43 | DISCH ---
DISCHARGE DATE: 12/13/2019 POSTOPERATIVE DIAGNOSIS: Rehab left hip fracture. HISTORY OF PRESENT ILLNESS: Anjelica Hogue is an 83-year-old female, admitted in transfer. She had fallen and sustained a left femur fracture on 11/28/2019 falling at her home. Underwent surgical repair on 11/29/2019. She had a postoperative infection, some urinary retention, hospitalized and transferred to [facility] for rehab. Had an uncomplicated course. She was actively involved with her therapy. Progressed well. Pain was controlled. Troublesome right wrist pain, brace in place. X-rays were performed, revealed some post repair issues of marked deformity. PT and OT were actively involved. Only laboratory study is urinalysis, was free of infection. Hemoglobin on 12/10/2019 stable at 11.4, hematocrit 34.0. At the time of dictation, was ambulating with a walker, was successful, discharged home. Some issues of memory and conflicts in terms of self-care were discussed. will be involved. [facility] Home Health will be involved. Surgical procedures none. Consultations none. PHYSICAL EXAMINATION: VITAL SIGNS: At the time of dictation, 36.7, 92, 133/59, 16, 95% on 0 liters. Cooperative and conversant. Bright eyed. HEENT: Unremarkable. NECK: Supple. Thyroid small. No carotid bruits. CHEST: On auscultation, clear in all lung oropeza. HEART: On auscultation, no ectopy or significant murmur. ABDOMEN: Benign. Surgical scar in left hip noted, surgical wire subcutaneous still in place. Good peripheral pulses. Mild venous stasis changes. PLAN: Discharge with Home Health and intervention and care. /[id number] NICK/LOUIE BEJARANO
[2019-12-12] MEDS: Mirtazapine 15 MG Tab PO SCH (20:24)
[2019-12-12] MEDS: Enoxaparin 40 MG/0.4 ML Syringe SUBCUT SCH (20:24)
[2019-12-13] MEDS: DULoxetine 60 MG Cap PO SCH (09:19)
[2019-12-13] MEDS: Multivitamin Tab PO SCH (09:20)
[2019-12-13] MEDS: cycloSPORINE Ophth Drops U/D Box of 30 EYEBOTH SCH (09:20)
[2019-12-13] MEDS: atorvaSTATin 10 MG Tab PO SCH (09:20)
[2019-12-13] MEDS: hydrOXYzine HCl 25 MG Tab PO SCH (09:20)
[2019-12-13] MEDS: Memantine 10 MG Tab PO SCH (09:20)
[2019-12-13] MEDS: Pantoprazole 40 MG Tab.CR PO SCH (09:20)
[2019-12-13] MEDS: PEG 400/Propylene Glycol Ophth Soln 15 ML Bottle EYEBOTH SCH (09:21)
[2019-12-13] MEDS: Acetaminophen 325 MG Tab PO SCH (09:21)
[2019-12-13] MEDS: Gabapentin 300 MG Cap PO SCH (09:25)
== END 2019-12-13 13:20 | disposition home health service (06) | DRG 560 ==
LOC: FB.MS 11:00 → UNDOADMIN 11:00 → FB.MS 13:01
PROVIDERS: ADMIT Family Medicine; ATTEND Family Medicine
DX: S72.002D Fracture of unspecified part of neck of left femur, subsequent encounter for closed fracture with routine healing (principal); N39.0 Urinary tract infection, site not specified; R33.9 Retention of urine, unspecified; E78.00 Pure hypercholesterolemia, unspecified; M19.90 Unspecified osteoarthritis, unspecified site; R32 Unspecified urinary incontinence; G89.29 Other chronic pain; M54.9 Dorsalgia, unspecified; M54.2 Cervicalgia; M81.0 Age-related osteoporosis without current pathological fracture; G62.9 Polyneuropathy, unspecified; F41.9 Anxiety disorder, unspecified; F03.90 Unspecified dementia, unspecified severity, without behavioral disturbance, psychotic disturbance, mood disturbance, and anxiety; F32.9 Major depressive disorder, single episode, unspecified; D64.9 Anemia, unspecified; Z96.642 Presence of left artificial hip joint; R29.818 Other symptoms and signs involving the nervous system; N32.81 Overactive bladder; Z88.1 Allergy status to other antibiotic agents; Z90.710 Acquired absence of both cervix and uterus; Z87.891 Personal history of nicotine dependence; Z79.899 Other long term (current) drug therapy; Z86.010 Personal history of colon polyps; Z87.440 Personal history of urinary (tract) infections; S62.101S Fracture of unspecified carpal bone, right wrist, sequela
CPT/HCPCS: 36415; 73110-RT; 81001; 85014; 85018; 94760; 97110-GO; 97110-GP; 97116-GP; 97161-GP; 97165-GO; 97530-GO; 97535-GO; A9270-GY; J1650

== ENCOUNTER 2020-05-18 10:15 | Emergency (ER) | payer MEDICARE, BC ==
--- NOTE | 2020-05-18 10:47 | EDM.PDOC ---
ED HPI GENERAL MEDICAL PROBLEM - General Chief Complaint: Respiratory Problem Time Seen by Provider: 05/18/20 10:30 Source of Information: Reports: Patient History Limitations: Reports: No Limitations - History of Present Illness INITIAL COMMENTS - FREE TEXT/NARRATIVE: pt c/o dyspnea with exertion that she has been noticing for 6 weeks,denies cough fever , chills or any orthopnea or difficulties with sleep, denies any weight gain or swelling at extremities , report chronic leg and hip pain and denies any significant known morbidities. Bilateral legs & feet Pain Score (Numeric/FACES): 4 - Related Data Allergies Allergy/AdvReac Type Severity Reaction Status Date / Time bacitracin Allergy Rash Verified 05/18/20 10:34 [From Neosporin ([id number])] bacitracin zinc Allergy Rash Verified 05/18/20 10:34 [From Neosporin ([id number])] morphine Allergy Vomiting Verified 05/18/20 10:34 neomycin sulfate Allergy Rash Verified 05/18/20 10:34 [From Neosporin ([id number])] polymyxin B Allergy Rash Verified 05/18/20 10:34 [From Neosporin ([id number])] Home Meds: Home Meds cycloSPORINE [Restasis] 1 drop EYEBOTH BID PRN 04/28/14 [History] DULoxetine [Cymbalta] 60 mg PO BID 05/12/14 [History] Memantine [Namenda] 10 mg PO BID 02/18/19 [History] EPINEPHrine [Epipen] 0.3 mg IM ASDIRECTED PRN 02/27/19 [History] Multivitamin [Daily Lamont] 1 tab PO DAILY 02/27/19 [History] Betamethasone/Propylene Glyc [Betamethasone Dp Aug 0.05% Oin] 1 applic TOP BID PRN 12/03/19 [History] Calcium Carbonate/Vitamin D3 [Calcium 500-Vit D3 200 Tablet] 1 tab PO BID 12/03/19 [History] Cholecalciferol (Vitamin D3) [Vitamin D3] 1 cap PO DAILY 12/03/19 [History] Folic Acid 1 mg PO DAILY 12/03/19 [History] Lutein 10 mg PO DAILY 12/03/19 [History] Mirtazapine 15 mg PO BEDTIME 12/03/19 [History] Propylene Glycol/PEG 400/Pf [Systane 0.3-0.4% Eye Drop] 1 drop EYEBOTH BID PRN 12/03/19 [History] atorvaSTATin [Lipitor] 10 mg PO BEDTIME 12/03/19 [History] Acetaminophen [Tylenol Extra Strength] 1,000 mg BID 05/18/20 [History] Gabapentin [Neurontin] 600 mg PO BID 05/18/20 [History] Past Medical History HEENT History: Reports: Cataract, Glaucoma Cardiovascular History: Reports: High Cholesterol Gastrointestinal History: Reports: Colon Polyp Genitourinary History: Reports: Urinary Incontinence, UTI, Recurrent [employer] History: Reports: Musculoskeletal History: Reports: Arthritis, Back Pain, Chronic, Neck Pain, Chronic, Osteoporosis Other Musculoskeletal History: FOOT PAIN, wrist pain Neurological History: Reports: Neuropathy, Peripheral 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, Anxiety, Dementia, Depression, Other (See Below) Other Psychiatric History: insomnia Hematologic History: Reports: Anemia - Infectious Disease History Infectious Disease History: Reports: Chicken Pox, Measles, Mumps - Past Surgical History HEENT Surgical History: Reports: None Cardiovascular Surgical History: Reports: None GI Surgical History: Reports: Colonoscopy Female Surgical History: Reports: Hysterectomy Endocrine Surgical History: Reports: None Musculoskeletal Surgical History: Reports: Carpal Tunnel, Hip Replacement, ORIF (left hip), Shoulder Surgery Social & Family History - Family History Family Medical History: Unobtainable - Caffeine Use Caffeine Use: Reports: Coffee, Tea Other Caffeine Use: 2 cans a day. - Living Situation & Occupation Living situation: Reports: Occupation: Retired ED ROS GENERAL - Review of Systems Review Of Systems: See Below Constitutional: Reports: No Symptoms. Denies: Fatigue HEENT: Reports: No Symptoms Respiratory: Reports: Shortness of Breath. Denies: Wheezing, Cough Cardiovascular: Reports: No Symptoms GI/Abdominal: Reports: No Symptoms : Reports: No Symptoms Musculoskeletal: Reports: No Symptoms Skin: Reports: No Symptoms Neurological: Reports: No Symptoms ED EXAM, GENERAL - Physical Exam Exam: See Below Exam Limited By: No Limitations General Appearance: Alert, No Apparent Distress Eye Exam: Bilateral Eye: Normal Inspection Nose: Normal Inspection Throat/Mouth: Normal Inspection Head: Atraumatic, Normocephalic Neck: Normal Inspection, Supple, Non-Tender Respiratory/Chest: No Respiratory Distress, Lungs Clear, Normal Breath Sounds Cardiovascular: Normal Peripheral Pulses, Regular Rate, Rhythm GI/Abdominal: Normal Bowel Sounds, Soft, Non-Tender Back Exam: Normal Inspection, Full Range of Motion Extremities: Normal Inspection, Normal Range of Motion, No Pedal Edema, Normal Capillary Refill Neurological: Alert, Oriented, CN II-XII Intact Skin Exam: Warm Course - Vital Signs Text/Narrative:: xray showing infiltrates on right side were reviewed with pt, WBC is nl, pt has pneumonia and she is stable for out patient mng . will be placed on Levaquin X 10 days, supportive mng was otherwise recommended, pt to use over the counter cough suppressants and follow with PCP in 1 week for re-check. Last Recorded V/S: Last Vital Signs Temp 36.6 C 05/18/20 10:15 Pulse 98 05/18/20 10:15 Resp 20 05/18/20 10:15 BP 147/82 H 05/18/20 10:15 Pulse Ox 95 05/18/20 10:15 - Orders/Labs/Meds Orders: Active Orders 24 hr Category Date Time Status Chest 1V Frontal [CR] Stat Exams 05/18/20 10:47 Taken TSH ULTRASENSITIVE [CHEM] Stat Lab 05/18/20 10:40 Received Labs: Laboratory Tests 05/18/20 05/18/20 Range/Units 10:40 10:40 WBC 8.3 (4.5-12.0) X10-3/uL RBC 3.50 (3.23-5.20) x10(6)uL Hgb 11.2 L (11.5-15.5) g/dL Hct 34.1 (30.0-51.3) % MCV 97.4 H (80-96) fL MCH 31.8 (27.7-33.6) pg MCHC 32.7 (32.2-35.4) g/dL RDW 15.4 (11.5-15.5) % Plt Count 626 H (125-369) X10(3)uL Sodium 140 (135-145) mmol/L Potassium 4.3 (3.5-5.3) mmol/L Chloride 104 (100-110) mmol/L Carbon Dioxide 27 (21-32) mmol/L BUN 15 (7-18) mg/dL Creatinine 0.8 (0.55-1.02) mg/dL Est Cr Clr Drug Dosing TNP Estimated GFR (MDRD) > 60 (>60) BUN/Creatinine Ratio 18.8 (9-20) Glucose 95 (80-116) mg/dL Calcium 8.9 (8.6-10.2) mg/dL Total Bilirubin 0.3 (0.1-1.3) mg/dL AST 20 (5-25) IU/L ALT 17 D (12-36) U/L Alkaline Phosphatase 58 (56-112) IU/L Total Protein 6.8 (6.0-8.0) g/dL Albumin 2.9 L (3.2-4.6) g/dL Globulin 3.9 g/dL Albumin/Globulin Ratio 0.7 Departure - Departure Time of Disposition: 11:20 Disposition: Home, Self-Care 01 Clinical Impression: Pneumonia - Discharge Information Referrals: PCP,None [Ordering Only Provider] - Forms: ED Department Discharge Sepsis Event Note (ED) - Evaluation Sepsis Screening Result: No Definite Risk - Focused Exam Vital Signs: Vital Signs Temp Pulse Resp BP Pulse Ox 05/18/20 10:15 36.6 C 98 20 147/82 H 95 - My Orders Last 24 Hours: My Active Orders 05/18/20 10:40 TSH ULTRASENSITIVE [CHEM] Stat 05/18/20 10:47 Chest 1V Frontal [CR] Stat - Assessment/Plan Last 24 Hours: My Active Orders 05/18/20 10:40 TSH ULTRASENSITIVE [CHEM] Stat 05/18/20 10:47 Chest 1V Frontal [CR] Stat
--- NOTE | 2020-05-18 11:26 | CR ---
INDICATION: Short of breath. CHEST, ONE VIEW: Portable AP upright view of the chest was obtained 05/18/20 and compared with 11/28/19 and 02/18/19. The heart remains normal in size and shape. The aorta is tortuous with some minimal calcification in the arch. There are now noted areas of patchy infiltration scattered throughout the right upper and middle lung field extending into the right lung base. Some minimal patchy infiltrate is also suggested at the left lung base. A more definite area of somewhat nodular density is seen subpleural in the upper outer portion of the left lung. Etiology of these findings may be on the basis of infection/pneumonia, but should be correlated clinically as neoplasia cannot be excluded. 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 IMPRESSION: 1. Areas of somewhat nodular infiltrate fairly widespread on the right with one larger area of possible nodular density in the subpleural area upper outer quadrant of the left lung. Findings could be on the basis of pneumonia although a process such as metastatic disease or aspiration pneumonia specifically would be considerations. 2. ASD aorta. 3. Mild dextroconcave scoliosis lower thoracic-lumbar spine. Report was called to Dr. Dennison as 1109 hours. [facility]
== END 2020-05-18 11:45 | disposition home or self-care (01) ==
LOC: FB.ED 10:15
DX: J18.9 Pneumonia, unspecified organism (principal); E78.00 Pure hypercholesterolemia, unspecified; F41.9 Anxiety disorder, unspecified; F32.9 Major depressive disorder, single episode, unspecified; Z90.710 Acquired absence of both cervix and uterus; Z88.1 Allergy status to other antibiotic agents; Z88.5 Allergy status to narcotic agent; Z79.899 Other long term (current) drug therapy
CPT/HCPCS: 36415; 71045; 80053; 84443; 85027; 99283; 99285-25

== ENCOUNTER 2022-07-03 16:13 | Emergency (ER) | payer MEDICARE, BC ==
[2022-07-03] MEDS ORDERED: Acetaminophen/oxyCODONE 325-5 MG Tab PO STA (16:39)
[2022-07-03] MEDS ORDERED: Ketorolac 30 MG/ML SDV IM ONE (17:26)
== END 2022-07-03 18:10 | disposition home or self-care (01) ==
LOC: FB.ED 16:13
DX: G62.9 Polyneuropathy, unspecified (principal); E78.00 Pure hypercholesterolemia, unspecified; M19.90 Unspecified osteoarthritis, unspecified site; D64.9 Anemia, unspecified; Z88.1 Allergy status to other antibiotic agents; Z88.8 Allergy status to other drugs, medicaments and biological substances; Z88.5 Allergy status to narcotic agent; Z91.048 Other nonmedicinal substance allergy status; Z79.899 Other long term (current) drug therapy
CPT/HCPCS: 96372; 99283; A9270-GY; J1885

== ENCOUNTER 2023-02-17 11:54 | Inpatient (IN) | payer MEDICARE, BC ==
[2023-02-17] MEDS ORDERED: Loperamide 2 MG Cap PO PRN (15:20)
[2023-02-17] MEDS ORDERED: Ibuprofen 200 MG Tab PO PRN (15:20)
[2023-02-17] MEDS ORDERED: Magnesium Hydroxide 400 MG/5 ML Susp 30 ML Cup PO PRN (15:20)
[2023-02-17] MEDS ORDERED: Acetaminophen/HYDROcodone 325-5 MG Tab PO PRN (16:38)
[2023-02-17] MEDS: Ibuprofen 200 MG Tab PO SCH ×2 (17:30→20:43)
[2023-02-17] MEDS: Acetaminophen 500 MG Tab PO SCH ×2 (17:31→20:43)
[2023-02-17] MEDS: PEG 400/Propylene Glycol Ophth Soln 15 ML Bottle EYEBOTH SCH (20:42)
[2023-02-17] MEDS: Nystatin Topical Powder 15 GM Bottle TOP SCH (20:42)
[2023-02-17] MEDS: Mirtazapine 15 MG Tab PO SCH (20:43)
[2023-02-17] MEDS: DULoxetine 60 MG Cap PO SCH (20:43)
[2023-02-17] MEDS: Memantine 10 MG Tab PO SCH (20:43)
[2023-02-17] MEDS: Gabapentin 300 MG Cap PO SCH (20:46)
[2023-02-17] MEDS ORDERED: Non-Formulary Medication 1 Each (Cyclosporine [Restasis] 1 EACH Amp) EYEBOTH SCH (21:00)
[2023-02-18 06:48] LABS: HEMATOCRIT 27.6 % (34.2-48.2); HEMOGLOBIN 9.1 g/dL (11.4-15.5)
[2023-02-18] MEDS: Famotidine 20 MG Tab PO SCH (07:22)
[2023-02-18] MEDS: Nystatin Topical Powder 15 GM Bottle TOP SCH ×2 (09:51→21:47)
[2023-02-18] MEDS: Ibuprofen 200 MG Tab PO SCH ×4 (09:53→21:46)
[2023-02-18] MEDS: Acetaminophen 500 MG Tab PO SCH ×4 (09:54→21:46)
[2023-02-18] MEDS: DULoxetine 60 MG Cap PO SCH ×2 (09:55→21:48)
[2023-02-18] MEDS: PEG 400/Propylene Glycol Ophth Soln 15 ML Bottle EYEBOTH SCH ×2 (09:56→21:47)
[2023-02-18] MEDS: Multivitamin Tab PO SCH (09:56)
[2023-02-18] MEDS: Losartan 25 MG Tab PO SCH (09:57)
[2023-02-18] MEDS: Folic Acid 1 MG Tab PO SCH (09:57)
[2023-02-18] MEDS: Cholecalciferol (Vitamin D3) 25 MCG Tab PO SCH (09:57)
[2023-02-18] MEDS: Memantine 10 MG Tab PO SCH ×2 (09:58→21:47)
[2023-02-18] MEDS: atorvaSTATin 10 MG Tab PO SCH (09:58)
[2023-02-18] MEDS: Gabapentin 600 MG Tab PO SCH (10:04)
[2023-02-18] MEDS: Polyethylene Glycol 3350 Powder 17 GM Packet PO PRN (13:58)
[2023-02-18] MEDS: oxyCODONE 5 MG Tab PO PRN (16:59)
[2023-02-18] MEDS: Mirtazapine 15 MG Tab PO SCH (21:46)
[2023-02-18] MEDS: Gabapentin 300 MG Cap PO SCH (21:49)
[2023-02-19] MEDS: Famotidine 20 MG Tab PO SCH (06:36)
[2023-02-19] MEDS: Losartan 25 MG Tab PO SCH (10:22)
[2023-02-19] MEDS: Gabapentin 600 MG Tab PO SCH (10:22)
[2023-02-19] MEDS: Cholecalciferol (Vitamin D3) 25 MCG Tab PO SCH (10:23)
[2023-02-19] MEDS: DULoxetine 60 MG Cap PO SCH ×2 (10:23→21:27)
[2023-02-19] MEDS: Folic Acid 1 MG Tab PO SCH (10:23)
[2023-02-19] MEDS: atorvaSTATin 10 MG Tab PO SCH (10:24)
[2023-02-19] MEDS: Memantine 10 MG Tab PO SCH ×2 (10:24→21:29)
[2023-02-19] MEDS: Ibuprofen 200 MG Tab PO SCH ×4 (10:24→21:28)
[2023-02-19] MEDS: Nystatin Topical Powder 15 GM Bottle TOP SCH ×2 (10:25→21:29)
[2023-02-19] MEDS: Acetaminophen 500 MG Tab PO SCH ×4 (10:25→21:31)
[2023-02-19] MEDS: PEG 400/Propylene Glycol Ophth Soln 15 ML Bottle EYEBOTH SCH ×2 (10:25→21:32)
[2023-02-19] MEDS: Multivitamin Tab PO SCH (10:26)
[2023-02-19] MEDS: oxyCODONE 5 MG Tab PO PRN (11:34)
[2023-02-19] MEDS: Polyethylene Glycol 3350 Powder 17 GM Packet PO PRN (19:06)
[2023-02-19] MEDS: Gabapentin 300 MG Cap PO SCH (21:29)
[2023-02-19] MEDS: Mirtazapine 15 MG Tab PO SCH (21:30)
[2023-02-20] MEDS: Famotidine 20 MG Tab PO SCH (06:36)
[2023-02-20] MEDS: atorvaSTATin 10 MG Tab PO SCH (09:44)
[2023-02-20] MEDS: Folic Acid 1 MG Tab PO SCH (09:44)
[2023-02-20] MEDS: Losartan 25 MG Tab PO SCH (09:44)
[2023-02-20] MEDS: DULoxetine 60 MG Cap PO SCH ×2 (09:45→21:34)
[2023-02-20] MEDS: Ibuprofen 200 MG Tab PO SCH ×4 (09:46→21:34)
[2023-02-20] MEDS: Memantine 10 MG Tab PO SCH ×2 (09:47→21:36)
[2023-02-20] MEDS: Gabapentin 600 MG Tab PO SCH (09:47)
[2023-02-20] MEDS: Nystatin Topical Powder 15 GM Bottle TOP SCH ×2 (09:47→21:36)
[2023-02-20] MEDS: PEG 400/Propylene Glycol Ophth Soln 15 ML Bottle EYEBOTH SCH ×2 (09:47→21:38)
[2023-02-20] MEDS: Cholecalciferol (Vitamin D3) 25 MCG Tab PO SCH (09:48)
[2023-02-20] MEDS: Multivitamin Tab PO SCH (09:48)
[2023-02-20] MEDS: Acetaminophen 500 MG Tab PO SCH ×4 (09:51→21:38)
[2023-02-20] MEDS: oxyCODONE 5 MG Tab PO PRN (12:06)
[2023-02-20] MEDS: Polyethylene Glycol 3350 Powder 17 GM Packet PO PRN (12:10)
[2023-02-20] MEDS: Gabapentin 300 MG Cap PO SCH (21:36)
[2023-02-20] MEDS: Mirtazapine 15 MG Tab PO SCH (21:37)
[2023-02-21] MEDS: Famotidine 20 MG Tab PO SCH (07:16)
[2023-02-21] MEDS: Folic Acid 1 MG Tab PO SCH (08:33)
[2023-02-21] MEDS: DULoxetine 60 MG Cap PO SCH ×2 (08:33→21:12)
[2023-02-21] MEDS: Ibuprofen 200 MG Tab PO SCH ×4 (08:34→21:13)
[2023-02-21] MEDS: atorvaSTATin 10 MG Tab PO SCH (08:34)
[2023-02-21] MEDS: Gabapentin 600 MG Tab PO SCH (08:36)
[2023-02-21] MEDS: Memantine 10 MG Tab PO SCH ×2 (08:36→21:14)
[2023-02-21] MEDS: PEG 400/Propylene Glycol Ophth Soln 15 ML Bottle EYEBOTH SCH ×2 (08:36→21:15)
[2023-02-21] MEDS: Nystatin Topical Powder 15 GM Bottle TOP SCH ×2 (08:37→21:14)
[2023-02-21] MEDS: Acetaminophen 500 MG Tab PO SCH ×4 (08:37→21:16)
[2023-02-21] MEDS: Multivitamin Tab PO SCH (08:37)
[2023-02-21] MEDS: Cholecalciferol (Vitamin D3) 25 MCG Tab PO SCH (08:39)
[2023-02-21] MEDS: Losartan 25 MG Tab PO SCH (09:52)
[2023-02-21] MEDS: Gabapentin 300 MG Cap PO SCH (21:14)
[2023-02-21] MEDS: Mirtazapine 15 MG Tab PO SCH (21:15)
[2023-02-22] MEDS: Famotidine 20 MG Tab PO SCH (06:47)
[2023-02-22] MEDS: Polyethylene Glycol 3350 Powder 17 GM Packet PO PRN (08:05)
[2023-02-22] MEDS: atorvaSTATin 10 MG Tab PO SCH (08:10)
[2023-02-22] MEDS: DULoxetine 60 MG Cap PO SCH ×2 (08:10→20:41)
[2023-02-22] MEDS: Folic Acid 1 MG Tab PO SCH (08:10)
[2023-02-22] MEDS: Gabapentin 600 MG Tab PO SCH (08:10)
[2023-02-22] MEDS: Losartan 25 MG Tab PO SCH (08:10)
[2023-02-22] MEDS: Methotrexate 2.5 MG Tab PO SCH (08:11)
[2023-02-22] MEDS: Memantine 10 MG Tab PO SCH ×2 (08:12→20:42)
[2023-02-22] MEDS: Ibuprofen 200 MG Tab PO SCH ×4 (08:12→20:41)
[2023-02-22] MEDS: PEG 400/Propylene Glycol Ophth Soln 15 ML Bottle EYEBOTH SCH ×2 (08:13→20:44)
[2023-02-22] MEDS: Nystatin Topical Powder 15 GM Bottle TOP SCH ×2 (08:13→20:43)
[2023-02-22] MEDS: Cholecalciferol (Vitamin D3) 25 MCG Tab PO SCH (08:14)
[2023-02-22] MEDS: Acetaminophen 500 MG Tab PO SCH ×4 (08:14→20:44)
[2023-02-22] MEDS: Multivitamin Tab PO SCH (08:14)
[2023-02-22] MEDS: oxyCODONE 5 MG Tab PO PRN ×2 (13:20→17:43)
[2023-02-22] MEDS: Mirtazapine 15 MG Tab PO SCH (20:40)
[2023-02-22] MEDS: Gabapentin 300 MG Cap PO SCH (20:41)
[2023-02-23] MEDS: Famotidine 20 MG Tab PO SCH (07:00)
[2023-02-23] MEDS: Losartan 25 MG Tab PO SCH (09:14)
[2023-02-23] MEDS: DULoxetine 60 MG Cap PO SCH ×2 (09:15→21:04)
[2023-02-23] MEDS: Ibuprofen 200 MG Tab PO SCH ×4 (09:16→21:01)
[2023-02-23] MEDS: Folic Acid 1 MG Tab PO SCH (09:16)
[2023-02-23] MEDS: atorvaSTATin 10 MG Tab PO SCH (09:16)
[2023-02-23] MEDS: Memantine 10 MG Tab PO SCH ×2 (09:17→21:03)
[2023-02-23] MEDS: oxyCODONE 5 MG Tab PO PRN ×2 (09:18→22:42)
[2023-02-23] MEDS: Gabapentin 600 MG Tab PO SCH (09:18)
[2023-02-23] MEDS: Nystatin Topical Powder 15 GM Bottle TOP SCH ×2 (09:18→20:55)
[2023-02-23] MEDS: PEG 400/Propylene Glycol Ophth Soln 15 ML Bottle EYEBOTH SCH ×2 (09:19→20:55)
[2023-02-23] MEDS: Acetaminophen 500 MG Tab PO SCH ×4 (09:19→21:02)
[2023-02-23] MEDS: Cholecalciferol (Vitamin D3) 25 MCG Tab PO SCH (09:20)
[2023-02-23] MEDS: Multivitamin Tab PO SCH (09:20)
[2023-02-23] MEDS: Ondansetron 4 MG Tab.DIS PO PRN ×2 (13:32→22:43)
[2023-02-23] MEDS: Mirtazapine 15 MG Tab PO SCH (21:03)
[2023-02-23] MEDS: Gabapentin 300 MG Cap PO SCH (21:04)
[2023-02-23] MEDS: Melatonin 3 MG Tab PO PRN (22:42)
[2023-02-24] MEDS: Ondansetron 4 MG Tab.DIS PO PRN ×3 (05:35→20:37)
[2023-02-24] MEDS: Famotidine 20 MG Tab PO SCH (06:34)
[2023-02-24] MEDS: Losartan 25 MG Tab PO SCH (08:35)
[2023-02-24] MEDS: DULoxetine 60 MG Cap PO SCH ×2 (08:36→20:39)
[2023-02-24] MEDS: Folic Acid 1 MG Tab PO SCH (08:36)
[2023-02-24] MEDS: Ibuprofen 200 MG Tab PO SCH ×4 (08:36→20:37)
[2023-02-24] MEDS: atorvaSTATin 10 MG Tab PO SCH (08:36)
[2023-02-24] MEDS: Nystatin Topical Powder 15 GM Bottle TOP SCH ×2 (08:38→20:41)
[2023-02-24] MEDS: Memantine 10 MG Tab PO SCH ×2 (08:38→20:38)
[2023-02-24] MEDS: Gabapentin 600 MG Tab PO SCH (08:38)
[2023-02-24] MEDS: Multivitamin Tab PO SCH (08:39)
[2023-02-24] MEDS: Acetaminophen 500 MG Tab PO SCH ×4 (08:39→20:42)
[2023-02-24] MEDS: PEG 400/Propylene Glycol Ophth Soln 15 ML Bottle EYEBOTH SCH ×2 (08:39→20:41)
[2023-02-24] MEDS: Cholecalciferol (Vitamin D3) 25 MCG Tab PO SCH (08:40)
[2023-02-24] MEDS: oxyCODONE 5 MG Tab PO PRN (09:21)
[2023-02-24 10:52] LABS: BASOPHILS ABSOLUTE AUTO 0.1 x10-3/uL (0.0-0.1); BASOPHILS PERCENT AUTO 0.6 % (0.2-1.5); EOSINOPHILS ABSOLUTE AUTO 0.1 x10-3/uL (0.0-0.8); EOSINOPHILS PERCENT AUTO 0.9 % (0.6-8.1); HEMATOCRIT 24.2 % (34.2-48.2); HEMOGLOBIN 7.9 g/dL (11.4-15.5); LYMPHOCYTES ABSOLUTE AUTO 1.2 x10-3/uL (1.0-4.4); MEAN CORPUSCULAR HEMOGLOBIN 30.1 pg (23.9-33.9); MEAN CORPUSCULAR HGB CONC 32.5 g/dL (31.9-34.8); MEAN CORPUSCULAR VOLUME 92.7 fL (76.7-100.5); MEAN PLATELET VOLUME 7.7 fL (7.1-12.4); MONOCYTES ABSOLUTE AUTO 0.4 x10-3/uL (0.3-1.0); MONOCYTES PERCENT AUTO 3.6 % (4.4-15.7); NEUTROPHILS ABSOLUTE AUTO 10.1 x10-3/uL (1.5-6.3); NEUTROPHILS PERCENT AUTO 84.9 % (30.8-76.2); PLATELET COUNT,PLT 303 x10(3)uL (151-488); RED BLOOD CELL COUNT 2.61 x10(6)uL (3.60-5.20); RED CELL DISTRIBUTION WIDTH 16.9 % (12.3-16.5); WHITE BLOOD CELL COUNT,WBC 11.9 x10-3/uL (3.0-10.3)
[2023-02-24] MEDS: Ferrous Sulfate 325 MG Tab PO SCH (11:06)
[2023-02-24] MEDS: Gabapentin 300 MG Cap PO SCH (20:37)
[2023-02-24] MEDS: Mirtazapine 15 MG Tab PO SCH (20:39)
[2023-02-25 06:21] LABS: HEMOGLOBIN 7.2 g/dL (11.4-15.5); MEAN CORPUSCULAR HEMOGLOBIN 30.2 pg (23.9-33.9); MEAN CORPUSCULAR HGB CONC 32.7 g/dL (31.9-34.8); MEAN CORPUSCULAR VOLUME 92.5 fL (76.7-100.5); MEAN PLATELET VOLUME 7.8 fL (7.1-12.4); PLATELET COUNT,PLT 315 x10(3)uL (151-488); RED BLOOD CELL COUNT 2.37 x10(6)uL (3.60-5.20); RED CELL DISTRIBUTION WIDTH 16.7 % (12.3-16.5); WHITE BLOOD CELL COUNT,WBC 14.9 x10-3/uL (3.0-10.3)
[2023-02-25] MEDS: Ondansetron 4 MG Tab.DIS PO PRN ×3 (06:22→19:43)
[2023-02-25 06:25] LABS: HEMATOCRIT 21.9 % (34.2-48.2)
[2023-02-25] MEDS: Famotidine 20 MG Tab PO SCH (06:29)
[2023-02-25] MEDS ORDERED: Pantoprazole 40 MG Vial IVPUSH ONE (06:32)
[2023-02-25 06:35] LABS: EOSINOPHILS PERCENT MAN 1 % (0-5); LYMPHOCYTES PERCENT MAN 6 % (13-37); MONOCYTES PERCENT MAN 2 % (4-12); SEG NEUTROPHILS PERCENT MAN 91 % (46-82)
[2023-02-25] MEDS: DULoxetine 60 MG Cap PO SCH ×2 (08:52→20:35)
[2023-02-25] MEDS: Acetaminophen 500 MG Tab PO SCH ×4 (08:52→20:31)
[2023-02-25] MEDS: Losartan 25 MG Tab PO SCH (08:53)
[2023-02-25] MEDS: Multivitamin Tab PO SCH (08:53)
[2023-02-25] MEDS: Folic Acid 1 MG Tab PO SCH ×2 (08:53→12:22)
[2023-02-25] MEDS: Ferrous Sulfate 325 MG Tab PO SCH (08:53)
[2023-02-25] MEDS: atorvaSTATin 10 MG Tab PO SCH ×2 (08:54→12:22)
[2023-02-25] MEDS: Memantine 10 MG Tab PO SCH ×2 (08:54→20:36)
[2023-02-25] MEDS: Cholecalciferol (Vitamin D3) 25 MCG Tab PO SCH (08:54)
[2023-02-25] MEDS: PEG 400/Propylene Glycol Ophth Soln 15 ML Bottle EYEBOTH SCH ×2 (08:55→20:32)
[2023-02-25] MEDS: Nystatin Topical Powder 15 GM Bottle TOP SCH ×2 (08:55→20:32)
[2023-02-25] MEDS ORDERED: Pantoprazole 40 MG Tab.CR PO SCH (09:00)
[2023-02-25] MEDS: Gabapentin 600 MG Tab PO SCH (09:05)
[2023-02-25] MEDS ORDERED: Sodium Chloride 0.9% 250 ML IV SCH ×3 (13:15→18:15)
[2023-02-25] MEDS ORDERED: Sodium Chloride 0.9% 10 ML Syringe FLUSH PRN (14:44)
[2023-02-25] MEDS ORDERED: Sodium Chloride 0.9% 250 ML IV ONE (14:48)
[2023-02-25] MEDS ORDERED: Pantoprazole 40 MG Vial IVPUSH SCH (15:00)
[2023-02-25] MEDS ORDERED: Sodium Chloride 0.9% 1,000 ML IV SCH (15:00)
[2023-02-25 17:50] LABS: BILIRUBIN,URINE NEGATIVE (NEGATIVE); GLUCOSE,URINE NORMAL (NORMAL); KETONES,URINE NEGATIVE (NEGATIVE); LEUKOCYTE ESTERASE,URINE NEGATIVE (NEGATIVE); NITRITE,URINE NEGATIVE (NEGATIVE); OCCULT BLOOD,URINE TRACE (NEGATIVE); PROTEIN,URINE NEGATIVE (NEGATIVE); UROBILINOGEN,URINE NORMAL (NEGATIVE)
[2023-02-25 17:56] LABS: APPEARANCE,URINE CLEAR (CLEAR); BACTERIA,URINE FEW (NS); COLOR,URINE YELLOW (YELLOW); RBC,URINE 0-5 (0-5); SQUAMOUS EPITHELIAL CELLS,UR FEW (NS,R,O); WBC,URINE 0-5 (0-5)
[2023-02-25] MEDS ORDERED: Furosemide 20 MG/2 ML VIAL IVPUSH ONE (18:09)
[2023-02-25] MEDS: Mirtazapine 15 MG Tab PO SCH (20:31)
[2023-02-25] MEDS: Gabapentin 300 MG Cap PO SCH (20:35)
[2023-02-26 06:18] LABS: BASOPHILS ABSOLUTE AUTO 0.1 x10-3/uL (0.0-0.1); BASOPHILS PERCENT AUTO 1.1 % (0.2-1.5); EOSINOPHILS ABSOLUTE AUTO 0.4 x10-3/uL (0.0-0.8); EOSINOPHILS PERCENT AUTO 3.1 % (0.6-8.1); HEMATOCRIT 27.6 % (34.2-48.2); HEMOGLOBIN 9.3 g/dL (11.4-15.5); LYMPHOCYTES ABSOLUTE AUTO 1.3 x10-3/uL (1.0-4.4); LYMPHOCYTES PERCENT AUTO 11.2 % (18.4-52.1); MEAN CORPUSCULAR HEMOGLOBIN 30.9 pg (23.9-33.9); MEAN CORPUSCULAR HGB CONC 33.8 g/dL (31.9-34.8); MEAN CORPUSCULAR VOLUME 91.3 fL (76.7-100.5); MEAN PLATELET VOLUME 7.6 fL (7.1-12.4); MONOCYTES ABSOLUTE AUTO 0.5 x10-3/uL (0.3-1.0); MONOCYTES PERCENT AUTO 4.6 % (4.4-15.7); NEUTROPHILS ABSOLUTE AUTO 9.3 x10-3/uL (1.5-6.3); PLATELET COUNT,PLT 239 x10(3)uL (151-488); RED BLOOD CELL COUNT 3.02 x10(6)uL (3.60-5.20); RED CELL DISTRIBUTION WIDTH 15.1 % (12.3-16.5); WHITE BLOOD CELL COUNT,WBC 11.6 x10-3/uL (3.0-10.3)
[2023-02-26 06:28] LABS: A/G RATIO 0.8; ALANINE AMINOTRANSFERASE,ALT 23 U/L (12-36); ALBUMIN 2.7 g/dL (3.2-4.6); ALKALINE PHOSPHATASE 118 IU/L (56-112); ASPARTATE AMNIOTRANSFERASE,AST 26 IU/L (5-25); BILIRUBIN TOTAL 0.6 mg/dL (0.1-1.3); BLOOD UREA NITROGEN,BUN 46 mg/dL (7-18); BUN/CREATININE RATIO 35.4 (9-20); CALCIUM 8.2 mg/dL (8.6-10.2); CARBON DIOXIDE,CO2 28 mmol/L (21-32); CHLORIDE,CL 100 mmol/L (100-110); CREATININE 1.3 mg/dL (0.55-1.02); EST CRCL DRUG DOSING (CG) 26.17 mL/min; ESTIMATED GFR 40 mL/min (>60); GLUCOSE RANDOM 106 mg/dL (80-116); PROTEIN TOTAL,TP 5.9 g/dL (6.0-8.0); SODIUM,NA 135 mmol/L (135-145)
[2023-02-26] MEDS: Famotidine 20 MG Tab PO SCH (06:33)
[2023-02-26] MEDS: Ondansetron 4 MG Tab.DIS PO PRN (08:20)
[2023-02-26] MEDS: Nystatin Topical Powder 15 GM Bottle TOP SCH ×2 (08:51→20:30)
[2023-02-26] MEDS: PEG 400/Propylene Glycol Ophth Soln 15 ML Bottle EYEBOTH SCH ×2 (08:52→20:30)
[2023-02-26] MEDS: Gabapentin 600 MG Tab PO SCH (08:52)
[2023-02-26] MEDS: Memantine 10 MG Tab PO SCH ×2 (08:52→20:29)
[2023-02-26] MEDS: atorvaSTATin 10 MG Tab PO SCH (08:53)
[2023-02-26] MEDS: Cholecalciferol (Vitamin D3) 25 MCG Tab PO SCH (08:54)
[2023-02-26] MEDS: Multivitamin Tab PO SCH (08:54)
[2023-02-26] MEDS: Ferrous Sulfate 325 MG Tab PO SCH (08:55)
[2023-02-26] MEDS: Folic Acid 1 MG Tab PO SCH (09:01)
[2023-02-26] MEDS: DULoxetine 60 MG Cap PO SCH ×2 (09:01→20:29)
[2023-02-26] MEDS: Acetaminophen 500 MG Tab PO SCH ×4 (09:01→20:28)
[2023-02-26] MEDS: Losartan 25 MG Tab PO SCH (09:02)
[2023-02-26] MEDS: Pantoprazole 40 MG Tab.CR PO SCH (09:44)
[2023-02-26] MEDS: Sucralfate 1 GM Tab PO SCH ×3 (12:03→20:29)
[2023-02-26] MEDS: hydrOXYzine HCl 25 MG Tab PO PRN (19:32)
[2023-02-26] MEDS: Mirtazapine 15 MG Tab PO SCH (20:28)
[2023-02-26] MEDS: Gabapentin 300 MG Cap PO SCH (20:29)
[2023-02-26] MEDS: Melatonin 3 MG Tab PO PRN (20:29)
[2023-02-27 06:48] LABS: BASOPHILS ABSOLUTE AUTO 0.1 x10-3/uL (0.0-0.1); BASOPHILS PERCENT AUTO 0.6 % (0.2-1.5); EOSINOPHILS ABSOLUTE AUTO 0.3 x10-3/uL (0.0-0.8); EOSINOPHILS PERCENT AUTO 3.2 % (0.6-8.1); HEMOGLOBIN 8.8 g/dL (11.4-15.5); LYMPHOCYTES ABSOLUTE AUTO 1.1 x10-3/uL (1.0-4.4); LYMPHOCYTES PERCENT AUTO 12.2 % (18.4-52.1); MEAN CORPUSCULAR HEMOGLOBIN 31.1 pg (23.9-33.9); MEAN CORPUSCULAR HGB CONC 33.9 g/dL (31.9-34.8); MEAN CORPUSCULAR VOLUME 91.7 fL (76.7-100.5); MEAN PLATELET VOLUME 7.7 fL (7.1-12.4); MONOCYTES ABSOLUTE AUTO 0.8 x10-3/uL (0.3-1.0); MONOCYTES PERCENT AUTO 8.2 % (4.4-15.7); NEUTROPHILS ABSOLUTE AUTO 7.1 x10-3/uL (1.5-6.3); NEUTROPHILS PERCENT AUTO 75.8 % (30.8-76.2); PLATELET COUNT,PLT 212 x10(3)uL (151-488); RED BLOOD CELL COUNT 2.84 x10(6)uL (3.60-5.20); RED CELL DISTRIBUTION WIDTH 15.3 % (12.3-16.5); WHITE BLOOD CELL COUNT,WBC 9.4 x10-3/uL (3.0-10.3)
[2023-02-27] MEDS: Famotidine 20 MG Tab PO SCH (06:51)
[2023-02-27] MEDS: Pantoprazole 40 MG Tab.CR PO SCH (06:52)
[2023-02-27] MEDS: Sucralfate 1 GM Tab PO SCH ×4 (06:52→20:11)
[2023-02-27] MEDS: oxyCODONE 5 MG Tab PO PRN ×2 (08:36→18:56)
[2023-02-27] MEDS: Losartan 25 MG Tab PO SCH (09:26)
[2023-02-27] MEDS: Acetaminophen 500 MG Tab PO SCH ×4 (09:28→20:12)
[2023-02-27] MEDS: DULoxetine 60 MG Cap PO SCH ×2 (09:28→20:12)
[2023-02-27] MEDS: atorvaSTATin 10 MG Tab PO SCH (09:29)
[2023-02-27] MEDS: Folic Acid 1 MG Tab PO SCH (09:30)
[2023-02-27] MEDS: Multivitamin Tab PO SCH (09:30)
[2023-02-27] MEDS: Memantine 10 MG Tab PO SCH ×2 (09:30→20:11)
[2023-02-27] MEDS: Cholecalciferol (Vitamin D3) 25 MCG Tab PO SCH (09:30)
[2023-02-27] MEDS: Ferrous Sulfate 325 MG Tab PO SCH (09:30)
[2023-02-27] MEDS: Nystatin Topical Powder 15 GM Bottle TOP SCH ×2 (09:31→20:25)
[2023-02-27] MEDS: PEG 400/Propylene Glycol Ophth Soln 15 ML Bottle EYEBOTH SCH ×2 (09:31→20:13)
[2023-02-27] MEDS: Gabapentin 600 MG Tab PO SCH (09:36)
[2023-02-27] MEDS: Mirtazapine 15 MG Tab PO SCH (20:14)
[2023-02-27] MEDS: Gabapentin 300 MG Cap PO SCH (20:18)
[2023-02-28] MEDS: hydrOXYzine HCl 25 MG Tab PO PRN (02:25)
[2023-02-28] MEDS: oxyCODONE 5 MG Tab PO PRN ×2 (02:26→08:35)
[2023-02-28] MEDS: Melatonin 3 MG Tab PO PRN ×2 (02:26→21:41)
[2023-02-28 06:16] LABS: BASOPHILS ABSOLUTE AUTO 0.1 x10-3/uL (0.0-0.1); BASOPHILS PERCENT AUTO 0.7 % (0.2-1.5); EOSINOPHILS ABSOLUTE AUTO 0.4 x10-3/uL (0.0-0.8); EOSINOPHILS PERCENT AUTO 4.5 % (0.6-8.1); HEMOGLOBIN 8.9 g/dL (11.4-15.5); LYMPHOCYTES ABSOLUTE AUTO 1.1 x10-3/uL (1.0-4.4); LYMPHOCYTES PERCENT AUTO 13.5 % (18.4-52.1); MEAN CORPUSCULAR HEMOGLOBIN 31.8 pg (23.9-33.9); MEAN CORPUSCULAR HGB CONC 34.2 g/dL (31.9-34.8); MEAN CORPUSCULAR VOLUME 92.9 fL (76.7-100.5); MEAN PLATELET VOLUME 7.4 fL (7.1-12.4); MONOCYTES ABSOLUTE AUTO 0.9 x10-3/uL (0.3-1.0); MONOCYTES PERCENT AUTO 10.8 % (4.4-15.7); NEUTROPHILS ABSOLUTE AUTO 5.6 x10-3/uL (1.5-6.3); NEUTROPHILS PERCENT AUTO 70.5 % (30.8-76.2); PLATELET COUNT,PLT 246 x10(3)uL (151-488); RED CELL DISTRIBUTION WIDTH 15.6 % (12.3-16.5)
[2023-02-28] MEDS: Pantoprazole 40 MG Tab.CR PO SCH (06:23)
[2023-02-28] MEDS: Sucralfate 1 GM Tab PO SCH ×4 (06:36→20:07)
[2023-02-28] MEDS: Famotidine 20 MG Tab PO SCH (06:47)
[2023-02-28] MEDS: atorvaSTATin 10 MG Tab PO SCH (09:20)
[2023-02-28] MEDS: Folic Acid 1 MG Tab PO SCH (09:21)
[2023-02-28] MEDS: DULoxetine 60 MG Cap PO SCH ×2 (09:21→20:08)
[2023-02-28] MEDS: Losartan 25 MG Tab PO SCH (09:21)
[2023-02-28] MEDS: Memantine 10 MG Tab PO SCH ×2 (09:21→20:08)
[2023-02-28] MEDS: Cholecalciferol (Vitamin D3) 25 MCG Tab PO SCH (09:21)
[2023-02-28] MEDS: Ferrous Sulfate 325 MG Tab PO SCH (09:22)
[2023-02-28] MEDS: Multivitamin Tab PO SCH (09:22)
[2023-02-28] MEDS: PEG 400/Propylene Glycol Ophth Soln 15 ML Bottle EYEBOTH SCH ×2 (09:22→20:10)
[2023-02-28] MEDS: Acetaminophen 500 MG Tab PO SCH ×4 (09:23→20:07)
[2023-02-28] MEDS: Gabapentin 600 MG Tab PO SCH (09:33)
[2023-02-28] MEDS: Nystatin Topical Powder 15 GM Bottle TOP SCH ×2 (10:27→20:09)
[2023-02-28] MEDS: Mirtazapine 15 MG Tab PO SCH (20:07)
[2023-02-28] MEDS: Gabapentin 300 MG Cap PO SCH (20:07)
[2023-03-01] MEDS: Famotidine 20 MG Tab PO SCH (06:39)
[2023-03-01] MEDS: Pantoprazole 40 MG Tab.CR PO SCH (06:39)
[2023-03-01] MEDS: Sucralfate 1 GM Tab PO SCH ×4 (06:39→20:39)
[2023-03-01] MEDS: Acetaminophen 500 MG Tab PO SCH ×4 (09:12→20:39)
[2023-03-01] MEDS: Losartan 25 MG Tab PO SCH (09:17)
[2023-03-01] MEDS: DULoxetine 60 MG Cap PO SCH ×2 (09:17→20:39)
[2023-03-01] MEDS: atorvaSTATin 10 MG Tab PO SCH (09:18)
[2023-03-01] MEDS: Ferrous Sulfate 325 MG Tab PO SCH (09:18)
[2023-03-01] MEDS: Folic Acid 1 MG Tab PO SCH (09:18)
[2023-03-01] MEDS: Methotrexate 2.5 MG Tab PO SCH ×2 (09:19→10:29)
[2023-03-01] MEDS: PEG 400/Propylene Glycol Ophth Soln 15 ML Bottle EYEBOTH SCH ×2 (09:20→20:38)
[2023-03-01] MEDS: Memantine 10 MG Tab PO SCH ×2 (09:20→20:41)
[2023-03-01] MEDS: Multivitamin Tab PO SCH (09:21)
[2023-03-01] MEDS: Cholecalciferol (Vitamin D3) 25 MCG Tab PO SCH (09:21)
[2023-03-01] MEDS: Gabapentin 600 MG Tab PO SCH (10:26)
[2023-03-01] MEDS: Ondansetron 4 MG Tab.DIS PO PRN (10:26)
[2023-03-01] MEDS: Nystatin Topical Powder 15 GM Bottle TOP SCH ×2 (10:26→20:41)
[2023-03-01] MEDS: oxyCODONE 5 MG Tab PO PRN (15:57)
[2023-03-01] MEDS: Gabapentin 300 MG Cap PO SCH (20:38)
[2023-03-01] MEDS: Mirtazapine 15 MG Tab PO SCH (20:39)
[2023-03-01] MEDS: Melatonin 3 MG Tab PO PRN (20:41)
[2023-03-02] MEDS: Sucralfate 1 GM Tab PO SCH (06:29)
[2023-03-02] MEDS: Famotidine 20 MG Tab PO SCH (06:29)
[2023-03-02] MEDS: Pantoprazole 40 MG Tab.CR PO SCH (06:29)
[2023-03-02] MEDS: Acetaminophen 500 MG Tab PO SCH (08:32)
[2023-03-02] MEDS: PEG 400/Propylene Glycol Ophth Soln 15 ML Bottle EYEBOTH SCH (08:34)
[2023-03-02] MEDS: Ferrous Sulfate 325 MG Tab PO SCH (08:36)
[2023-03-02] MEDS: Losartan 25 MG Tab PO SCH (08:37)
[2023-03-02] MEDS: Multivitamin Tab PO SCH (08:40)
[2023-03-02] MEDS: atorvaSTATin 10 MG Tab PO SCH (08:41)
[2023-03-02] MEDS: Folic Acid 1 MG Tab PO SCH (08:41)
[2023-03-02] MEDS: Cholecalciferol (Vitamin D3) 25 MCG Tab PO SCH (08:43)
[2023-03-02] MEDS: DULoxetine 60 MG Cap PO SCH (08:43)
[2023-03-02] MEDS: Memantine 10 MG Tab PO SCH (08:44)
[2023-03-02] MEDS: Gabapentin 600 MG Tab PO SCH (08:48)
[2023-03-02] MEDS: Nystatin Topical Powder 15 GM Bottle TOP SCH (08:49)
[2023-03-02] MEDS: oxyCODONE 5 MG Tab PO PRN (09:15)
== END 2023-03-02 10:50 | DRG 560 ==
LOC: FB.MS 14:13
PROVIDERS: ADMIT Student in an Organized Health Care Education/Training Program; ATTEND Family Medicine
PROC: 30233N1 Transfusion of Nonautologous Red Blood Cells into Peripheral Vein, Percutaneous Approach (ICD-10-PCS; principal; 2023-03-01)
DX: S32.591D Other specified fracture of right pubis, subsequent encounter for fracture with routine healing (principal); F03.93 Unspecified dementia, unspecified severity, with mood disturbance; K92.2 Gastrointestinal hemorrhage, unspecified; M87.051 Idiopathic aseptic necrosis of right femur; F03.94 Unspecified dementia, unspecified severity, with anxiety; D64.89 Other specified anemias; Z51.5 Encounter for palliative care; Z66 Do not resuscitate; M51.35 Other intervertebral disc degeneration, thoracolumbar region; K21.9 Gastro-esophageal reflux disease without esophagitis; H40.9 Unspecified glaucoma; I10 Essential (primary) hypertension; E78.2 Mixed hyperlipidemia; S22.069D Unspecified fracture of T7-T8 vertebra, subsequent encounter for fracture with routine healing; S22.079D Unspecified fracture of T9-T10 vertebra, subsequent encounter for fracture with routine healing; S32.019D Unspecified fracture of first lumbar vertebra, subsequent encounter for fracture with routine healing; S32.029D Unspecified fracture of second lumbar vertebra, subsequent encounter for fracture with routine healing; Z96.642 Presence of left artificial hip joint; R09.02 Hypoxemia; R29.818 Other symptoms and signs involving the nervous system; R41.89 Other symptoms and signs involving cognitive functions and awareness; G62.9 Polyneuropathy, unspecified; Z20.822 Contact with and (suspected) exposure to COVID-19; Z79.899 Other long term (current) drug therapy; G89.29 Other chronic pain; W19.XXXD Unspecified fall, subsequent encounter; Z88.1 Allergy status to other antibiotic agents; Z88.2 Allergy status to sulfonamides; Z88.8 Allergy status to other drugs, medicaments and biological substances; Z87.440 Personal history of urinary (tract) infections; Z90.711 Acquired absence of uterus with remaining cervical stump; Z98.890 Other specified postprocedural states; Z99.81 Dependence on supplemental oxygen; Z87.81 Personal history of (healed) traumatic fracture
CPT/HCPCS: 36415; 36430; 71045; 80053; 81001; 82272; 82947; 84484; 85014; 85018; 85025; 86850; 86900; 86901; 86920; 86922; 93005; 93010; 97110-GO; 97161-GP; 97165-GO; 97530-GO; 97530-GP; 99306; 99310; 99315; A9270-GY; C9113; J1940; J7050; J8610; P9016; Q0162; U0002